=== PATIENT | male | born 1990 | race Caucasian/White ===

== ENCOUNTER 2020-08-20 13:56 | Outpatient (RCR) | payer OTHER, SELFPAY | END 2020-11-10 10:50 | disposition home or self-care (01) | LOC: ANHDMC 13:56 | PROVIDERS: PCP Family Medicine Adolescent Medicine; Visit Provider Family Medicine Adolescent Medicine | DX: R63.5 Abnormal weight gain (principal); Z71.3 Dietary counseling and surveillance | CPT/HCPCS: 97802 ==

== ENCOUNTER 2020-08-24 10:25 | Emergency (ER) | payer OTHER, SELFPAY ==
[2020-08-24 10:38] VITALS: BP 143/80; PULSE 70; RESP 18; TEMP 36.8; O2SAT 100
--- NOTE | 2020-08-24 11:03 | ED.SKABFB ---
HPI - Skin/Abscess/Foreign Bdy General Chief complaint: Skin/Abscess/Foreign Body Stated complaint: pos insect bite/sting Source: patient and RN notes reviewed Limitations: no limitations History of Present Illness HPI narrative: The patient, previously unhealthy in a wheelchair with cerebral palsy, presents with skin eruption. Mother notes approximately ~3-day history of skin eruption on his right forearm. Patient has a least a hand-size area of redness, warmth, edema with a central puncta-which is attributed to insect bites. No fever, induration, abscess, prior/other rashes- he does have some chronic acneiform pimples on his back trunk. Symptoms are mild, worse with scratching Related Data Home Medications Medication Instructions Recorded Confirmed aripiprazole mg 08/24/20 benztropine 08/24/20 divalproex PO 08/24/20 Allergies Allergy/AdvReac Type Severity Reaction Status Date / Time No Known Allergies Allergy Verified 09/29/14 10:04 Review of Systems Review of Systems: Narrative: The patient has been informed that they may have pre-hypertension or Hypertension based on a BP reading in the department. I recommend that the patient call the primary care provider listed on their discharge instructions or a physician of their choice this week to arrange follow up for further evaluation of possible pre-hypertension or Hypertension General/Constitutional: No weight loss,fever Eyes: N0: Redness,discharge Ears/Nose/Throat: No: Epistaxis,ear discharge Respiratory: Denies: Hemoptysis Gastrointestinal: No Vomiting, Bleeding-rectal Skin: Reports lumps, eruption Neurologic: No Focal Weakness,Sz Hematologic: Denies: Petechiae/Purpura Psychiatric: No: Suicida ideationl All Other Systems: Reviewed and Negative [facility] Social History Social History Smoking status: Never smoker Alcohol intake: never Spiritual care concerns: No Exam Narrative: Exam Narrative: General Appearance: In wheelchair, Cooperative Head: Slightly dysmorphic Eye: PERRLA, Conjunctiva clear Ear: External ear normal Nose: Normal nose, Nare clear Mouth/Throat: Normal appearing Neck Exam: Supple Respiratory: Airway patent, No respiratory distress Skin: Warm, Dry; small, well demarcated, erysipeloid macular papular skin eruption of right extensor forearm Neurological: Awake & alert Psychiatric: Normal mood, Normal affect Course Vital Signs Vital signs: Vital Signs Temperature 98.3 F 08/24/20 10:38 Pulse Rate 70 08/24/20 10:38 Respiratory Rate 18 08/24/20 10:38 Blood Pressure 143/80 H 08/24/20 10:38 Pulse Oximetry 100 08/24/20 10:38 Temperature 98.3 F 08/24/20 10:38 Pulse Rate 70 08/24/20 10:38 Respiratory Rate 18 08/24/20 10:38 Blood Pressure 143/80 H 08/24/20 10:38 Pulse Oximetry 100 08/24/20 10:38 Discharge Plan Discharge Clinical Impression: Pruritic condition Cellulitis Qualifiers: Site of cellulitis: extremity Site of cellulitis of extremity: upper extremity Laterality: right Qualified Code(s): L03.113 - Cellulitis of right upper limb Patient Disposition: Home, Self-Care Condition: Stable Instructions: Antibiotic Form, Cellulitis (ED) Additional Instructions: Take clindamycin with food, probiotic or antacid; stop if diarrhea occurs Keep photo log of area; go to hospital if not improved Prescriptions: New clindamycin HCl 300 mg capsule 300 mg PO TID Qty: 21 RF: 0 mupirocin 2 % ointment 1 applic TOPICAL TID Qty: 30 RF: 0 No Action benztropine 0.5 mg tablet RF: 0 divalproex 500 mg tablet,delayed release (DR/EC) PO RF: 0 aripiprazole 2 mg tablet RF: 0 Follow-up/Referrals: Jerry Cain MD [Primary Care Provider] -
[2020-08-24] MEDS: cefTRIAXone 1 GM VIAL 0.5 GM IM (11:20)
== END 2020-08-24 11:43 | disposition home or self-care (01) ==
PROVIDERS: Emergency Provider Emergency Medicine; PCP Family Medicine Adolescent Medicine
DX: L03.113 Cellulitis of right upper limb (principal); L29.9 Pruritus, unspecified; G80.9 Cerebral palsy, unspecified; Z99.3 Dependence on wheelchair
CPT/HCPCS: 96372; 99213; G0463; J0696

== ENCOUNTER 2020-09-21 16:12 | Outpatient (RCR) | payer OTHER, SELFPAY ==
--- NOTE | 2020-09-21 17:43 | PCPTNOTE ---
POWER MOBILITY DEVICE EVALUATION AND RECOMMENDATIONS Attending Provider: Jerry Cain MD Patient:Moe Martini Date of :1990 At this evaluation a power mobility device was recommended with specifications to meet the needs of the patient. Please see power mobility device evaluation for form details of evaluation. No further care plan will be developed. Thank you for referring this patient to [facility]. Please review, sign, date and return this discharge summary SARA. I have been updated about the patient's current status and I agree with discharge from the above service at this time. Referring Physician Date
== END 2020-12-07 08:14 | disposition home or self-care (01) ==
LOC: ANHPT 16:12
PROVIDERS: PCP Family Medicine Adolescent Medicine; Visit Provider Family Medicine Adolescent Medicine
DX: G80.8 Other cerebral palsy (principal)
CPT/HCPCS: 97163

== ENCOUNTER 2020-12-19 11:02 | Emergency (ER) | payer OTHER, SELFPAY ==
[2020-12-19 11:10] VITALS: BP 133/81; PULSE 88; RESP 16; TEMP 36.8; O2SAT 99
--- NOTE | 2020-12-19 11:21 | ED.DENTAL ---
HPI - Dental/Oral General Chief complaint: Dental/Oral Stated complaint: JAW PAIN Time Seen by Provider: 12/19/20 11:10 Source: patient, family and RN notes reviewed Mode of arrival: ambulatory Limitations: no limitations History of Present Illness HPI Narrative: Mother presents patient today complaining of white spots along the right upper gumline that are painful. Patient noticed 2 to 3 days ago. Mother was wanting to know if these were the start of a dental infection or abscess. No [id number] interventions prior to arrival. Patient denies any tooth pain or facial swelling. Related Data Home Medications Medication Instructions Recorded Confirmed aripiprazole mg 08/24/20 benztropine 08/24/20 divalproex PO 08/24/20 Allergies Allergy/AdvReac Type Severity Reaction Status Date / Time No Known Allergies Allergy Verified 09/29/14 10:04 Review of Systems Review of Systems: CONSTITUTIONAL: Denies body aches, fever, chills, or sweats. EYES: Denies visual changes, redness, or discharge. ENT: Denies rhinorrhea, congestion, sore throat, or otalgia.+ White bumps along the right upper gumline CARDIOVASCULAR: Denies chest pain, palpitations, or edema. RESPIRATORY: Denies cough or dyspnea. GASTROINTESTINAL: Denies abdominal pain, nausea, vomiting, or diarrhea. GENITOURINARY: Denies dysuria or hematuria. SKIN: Denies rash, itching, or wounds. MUSCULOSKELETAL: Denies back pain, joint pain, or myalgia. NEUROLOGIC: Denies headache, numbness, tingling, or weakness. PSYCH: Denies depression or anxiety. [facility] Past Medical History Medical History (Updated 12/19/20 @ 11:24 by Valentina Rojo, SALES DEVELOPMENT REPRESENTATIVE, ) Cerebral palsy Social History Social History Smoking status: Never smoker Alcohol intake: never Spiritual care concerns: No Comments At time of signature, I have reviewed and agree with nursing past medical, surgical, social and family history unless otherwise noted. Please see nursing chart for further information. There is no relevant family history pertinent to the presenting complaint Exam Narrative: GENERAL: Well-appearing, well-nourished, and in no acute distress. HEAD: Normocephalic, atraumatic. EYES: EOMI. No redness or drainage. Conjunctivae normal. ENT: Mucous membranes pink and moist. Nares clear. No rhinorrhea. Throat normal. Uvula midline. + Patient has several white ulcerations along the very superior portion of the right upper gumline, where the gums meet the cheek. There is surrounding erythema. NECK: Normal AROM. Supple. No lymphadenopathy. CHEST: No respiratory distress. EXTREMITIES: No edema. SKIN: Warm, dry, no rash. Capillary refill normal. Normal skin turgor. NEURO: No focal deficits. Alert and oriented x3. PSYCH: Normal affect. No signs of depression or anxiety. Course Vital Signs Vital signs: Vital Signs Temperature 98.2 F 12/19/20 11:10 Pulse Rate 88 12/19/20 11:10 Respiratory Rate 16 12/19/20 11:10 Blood Pressure 133/81 12/19/20 11:10 Pulse Oximetry 99 12/19/20 11:10 Temperature 98.2 F 12/19/20 11:10 Pulse Rate 88 12/19/20 11:10 Respiratory Rate 16 12/19/20 11:10 Blood Pressure 133/81 12/19/20 11:10 Pulse Oximetry 99 12/19/20 11:10 Reviewed. Pt has been instructed to follow up with his PCP regarding his elevated blood pressure today. MDM - Dental/Oral Differential Diagnosis Differential diagnosis: Likely gingival abscess, dental caries, toothache, dental abscess and fracture of tooth Critical Care Time Critical Care Time Critical Care Time: No Discharge Plan Discharge Clinical Impression: Gingivitis Patient Disposition: Home, Self-Care Condition: Stable Instructions: Antibiotic Form, Gingivitis (ED), Canker Sores (ED) Additional Instructions: Please give the amoxicillin as prescribed until gone. Give Tylenol or ibuprofen at home for brian
== END 2020-12-19 11:41 | disposition home or self-care (01) ==
PROVIDERS: Emergency Provider Nurse Practitioner; PCP Family Medicine Adolescent Medicine
DX: K05.10 Chronic gingivitis, plaque induced (principal); G80.9 Cerebral palsy, unspecified
CPT/HCPCS: 99213; G0463

== ENCOUNTER 2021-04-19 14:16 | Emergency (ER) | payer OTHER, SELFPAY ==
--- NOTE | 2021-04-19 14:22 | ED.ABDPAIN ---
HPI - Abdominal Pain General Chief Complaint: Abdominal Pain Stated Complaint: R SIDED ABD PAIN Time Seen by Provider: 04/19/21 14:40 Source: patient, family, RN notes reviewed and old records reviewed Mode of arrival: ambulatory Limitations: no limitations History of Present Illness HPI narrative: 31 year old male who presents per wheel chair accompanied by mother to express care with complaints of abdominal pain for the past 2 weeks to mid abdomen region below umbilicus.. Patient has history of cerebral palsy and is weak on his left side and is unable to walk, mother states that he is able to crawl around and he is able to crawl into wheelchair but unable to stand. Patient is incontinent of urine and stool but was able to give us a urine specimen. Patient has had no fever, chills or sweats, mother reports that patient has been drinking more soda than usual just returned from vacation where they went to [employer]. Patient has had no nausea or vomiting but did have some diarrhea stools X2 today. MD elicited complaint: abdominal pain Pertinent past history: other (incontinent) Onset (ago): day(s) (2 weeks) Pain Consistency: colicky Location: other (below umbilicus mid abdomen) Severity: mild Quality: aching Radiation: none Exacerbating factors: nothing Related Data Home Medications Medication Instructions Recorded Confirmed aripiprazole 2 mg tablet 2 mg PO DAILY tablet 03/16/21 04/19/21 benztropine 0.5 mg tablet 0.5 mg PO BID tablet 03/16/21 04/19/21 divalproex 500 mg tablet,delayed 500 mg PO BID tablet 03/16/21 04/19/21 release Allergies Allergy/AdvReac Type Severity Reaction Status Date / Time No Known Allergies Allergy Verified 04/19/21 14:26 Review of Systems Review of Systems: CONSTITUTIONAL: Denies fever, chills, or sweats. EYES: Denies visual changes, redness, or discharge. ENT: Denies rhinorrhea, congestion, sore throat, or otalgia. CARDIOVASCULAR: Denies chest pain, palpitations, or edema. RESPIRATORY: Denies cough or dyspnea. GASTROINTESTINAL: abdominal pain mid lower abdomen, no nausea, vomiting, or diarrhea. GENITOURINARY: patient is incontinent of urine and stools, no pain with urination voiced, SKIN: Denies rash or itching. MUSCULOSKELETAL: Denies back pain, joint pain, or myalgia, has cerebral palsy is unable to stand is weak on left extremities, is in wheelchair NEUROLOGIC: Denies headache, numbness, has weakness left extremities PSYCHIATRIC: Denies anxiety or depression. All systems reviewed & are unremarkable except as noted in HPI and below PMFSH Past Medical History Medical History Cerebral palsy Seizure disorder Urinary incontinence Family History Family History Father Acute myocardial infarction Mother Asthma Grandparent Breast cancer Sibling Cerebrovascular accident Social History Social History Smoking status: Never smoker Tobacco type: cigars Second hand tobacco smoke exposure: No Alcohol intake: never Substance use: never Substance use type: does not use Gender identity (if verbalized by the patient): Male Sexual Orientation (if Verbalized by the Patient): Straight or Heterosexual Spiritual care concerns: No Agree to blood products: Yes Comments At time of signature, agree with nursing past medical, surgical, social and family history. There is no relevant family history pertinent to the presenting complaint Exam Narrative: GENERAL: Well-appearing, well-nourished, and in no acute distress. HEAD: Normocephalic, atraumatic. EYES: PERRLA and EOMI. ENT: Nares clear, no rhinorrhea or epistaxis. Mucous membranes moist. NECK: Supple. no lymphadenopathy CHEST: Clear to auscultation. No respiratory distress. SAO2 100% on room air HEART: Regular rate and rhythm. No murmur heard. Normal periphera
[2021-04-19 14:23] VITALS: BP 131/74; PULSE 92; RESP 16; TEMP 36.8; O2SAT 100
== END 2021-04-19 14:59 | disposition home or self-care (01) ==
PROVIDERS: Emergency Provider Registered Nurse; PCP Family Medicine Adolescent Medicine
DX: N39.0 Urinary tract infection, site not specified (principal); G80.9 Cerebral palsy, unspecified; G40.909 Epilepsy, unspecified, not intractable, without status epilepticus
CPT/HCPCS: 81003; 87086; 99213; G0463

== ENCOUNTER 2021-10-18 14:40 | Emergency (ER) | payer OTHER, SELFPAY ==
--- NOTE | 2021-10-18 15:01 | ED.URI ---
HPI - URI/Sore Throat General Chief Complaint: Upper Respiratory Infection Stated Complaint: sore throat Time Seen by Provider: 10/18/21 15:01 History of Present Illness HPI Narrative: 31 y/o male with history of cerebral palsy presented with mother for c/o sore throat since yesterday. Endorses cough today. Denies any other symptoms. Denies sick contacts. Not taking anything for symptoms. Related Data Home Medications Medication Instructions Recorded Confirmed aripiprazole 2 mg tablet 2 mg PO DAILY 03/16/21 10/18/21 benztropine 0.5 mg tablet 0.5 mg PO BID 03/16/21 10/18/21 divalproex 500 mg tablet,delayed 500 mg PO BID 03/16/21 10/18/21 release Allergies Allergy/AdvReac Type Severity Reaction Status Date / Time No Known Allergies Allergy Verified 10/18/21 14:58 Review of Systems Review of Systems: CONSTITUTIONAL: Denies body aches, fever, chills, or sweats. EYES: Denies visual changes, redness, or discharge. ENT: Denies rhinorrhea, congestion, or otalgia. CARDIOVASCULAR: Denies chest pain, palpitations, or edema. RESPIRATORY: Denies dyspnea. GASTROINTESTINAL: Denies abdominal pain, nausea, vomiting, or diarrhea. SKIN: Denies rash, itching, or wounds. MUSCULOSKELETAL: Denies back pain, joint pain, or myalgia. NEUROLOGIC: Denies headache PMFSH Past Medical History Medical History Cerebral palsy Seizure disorder Urinary incontinence Family History Family History Father Acute myocardial infarction Mother Asthma Grandparent Breast cancer Sibling Cerebrovascular accident Social History Social History Smoking status: Never smoker Tobacco type: cigars Second hand tobacco smoke exposure: No Alcohol intake: never Substance use: never Substance use type: does not use Gender identity (if verbalized by the patient): Male Sexual Orientation (if Verbalized by the Patient): Straight or Heterosexual Spiritual care concerns: No Agree to blood products: Yes Exam Narrative: GENERAL: well-appearing, no acute distress. EYES: conjunctivae clear ENT: Mucous membranes moist. TMs pearly van with normal light reflex bilaterally; no tragal tenderness. Oropharynx erythematous without lesions. Tonsils enlarged and without exudate. No drooling, no hoarseness, no trismus, uvula midline. No tripod positioning, hot potato voice, or soft palate swelling. NECK: Supple. No lymphadenopathy CHEST: Clear to auscultation, breath sounds equal. HEART: Regular rate and rhythm. No murmur heard. SKIN: Warm, dry, no rash. NEURO: Alert and oriented x3. Wheelchair. Course Course Emergency Course: Patient is aware of diagnosis, understands and agrees to treatment plan. Anticipatory guidance given. Patient agrees to follow-up as directed and is aware of reasons to seek care at the emergency department. Portions of this record may have been created with voice recognition software Level of Care: Express Care Visit Vital Signs Vital signs: Vital Signs Temperature 100.5 F H 10/18/21 15:21 Pulse Rate 106 H 10/18/21 15:21 Respiratory Rate 16 10/18/21 15:21 Blood Pressure 114/74 10/18/21 15:21 Pulse Oximetry 98 10/18/21 15:21 Temperature 100.5 F H 10/18/21 15:21 Pulse Rate 106 H 10/18/21 15:21 Respiratory Rate 16 10/18/21 15:21 Blood Pressure 114/74 10/18/21 15:21 Pulse Oximetry 98 10/18/21 15:21 MDM - URI/Sore Throat MDM Narrative Medical decision making narrative: Neg strep and covid result reviewed with pt and mother. Advised supportive treatments and s/s to go to the ER. Aware culture will be sent. Patient is appropriate for outpatient treatment and follow-up. Differential Diagnosis Differential diagnosis: Likely upper respiratory infection, viral infection and pharyngitis Lab Data Labs:
[2021-10-18 15:21] VITALS: BP 114/74; PULSE 106; RESP 16; TEMP 38.1; O2SAT 98
== END 2021-10-18 15:40 | disposition home or self-care (01) ==
PROVIDERS: Emergency Provider Nurse Practitioner Family; PCP Family Medicine Adolescent Medicine
DX: J02.9 Acute pharyngitis, unspecified (principal); Z20.822 Contact with and (suspected) exposure to COVID-19; G80.9 Cerebral palsy, unspecified; G40.909 Epilepsy, unspecified, not intractable, without status epilepticus
CPT/HCPCS: 87081; 87426; 87880; 99213; C9803; G0463

== ENCOUNTER 2022-03-16 20:46 | Inpatient (IN) | payer OTHER, SELFPAY ==
--- NOTE | ~2022-03-16 | CT_ITS ---
EXAMINATION: CT abdomen pelvis w con DATE: 03/16/2022 22:35 INDICATION: LLQ abd pain, nausea, constipation TECHNIQUE: Computed tomography (CT) of the abdomen and pelvis was performed with 100 mL Omnipaque-350 intravenous contrast. Automated exposure control and iterative reconstruction technique were employe d. The dose-length product was 583.44 mGy-cm. COMPARISON: 08/19/2014. FINDINGS: Lower thorax: Mild dependent atelectasis. Bilateral gynecomastia. Liver: Normal. Biliary/Gallbladder: Gallbladder is collapsed. No bile duct dilation. Pancreas: No mass or duct dilation. Spleen: Normal. Adrenals:No mass. Kidneys: Simple left upper pole cyst. Multiple bilateral subcentimeter hypodensities that are too sma ll to characterize but also most likely represent cysts. 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 No obstructive calcification or hydronephrosis. GI tract: Mild distal esophageal and gastric wall edema. Marked rectal and distal sigmoid dilation by formed stool, up to 10.6 cm, with wall thickening and surrounding inflammatory change. No small ana l dilation. Normal appendix. Mesentery/Peritoneum: No ascites, mass, or free air. Retroperitoneum: No mass. Pelvis: The bladder is partially filled and displaced by the dilated rectum/sigmoid. Soft Tissues: Soft tissues and body wall unremarkable. Bones: No acute osseous finding. IMPRESSION: Marked fecal impaction with associated findings concerning for stercoral colitis. The volume of impac alex fecal material is slightly less than in the prior study but the degree of surrounding inflammator y change has increased. Reviewed, dictated and finalized at location K. ON MIXER IMPRESSION: Marked fecal impaction with associated findings concerning for stercoral coliti s. The volume of impacted fecal material is slightly less than in the prior felicia dy but the degree of surrounding inflammatory change has increased.
--- NOTE | ~2022-03-16 | US_ITS ---
EXAMINATION: US venous doppler UE RT DATE: 03/18/2022 10:52 INDICATION: Infiltration of the IV access site at the right upper limb with subsequent pain and tissu e dysfunction TECHNIQUE: Grayscale images without and with compression and Doppler images of the right upper extrem ity veins were obtained at the below the level of the antecubital fossa. Patient refused removal of h is shirt precluding assessment of the veins in the more proximal upper arm COMPARISON: None. FINDINGS: There is focal subcutaneous edema at the right antecubital fossa. The right cephalic vein, radial vei n, and ulnar vein are patent. IMPRESSION: 1. Focal subcutaneous edema at the right antecubital fossa with patent right cephalic, radial and uln ar veins which are without evident venous thrombosis. 2. The veins in the right upper arm were unable to be evaluated as patient refused removal of his mahnaz rt. Reviewed, dictated and finalized at location B. TRICAL CONTACTS ADJUSTER IMPRESSION: 1. Focal subcutaneous edema at the right antecubital fossa with patent right ce phalic, radial and ulnar veins which are without evident venous thrombosis. 2. The veins in the right upper arm were unable to be evaluated as patient refu sed removal of his shirt.
--- NOTE | ~2022-03-16 | US_ITS ---
EXAMINATION: US venous doppler UE RT DATE: 03/18/2022 18:40 INDICATION: Right upper extremity swelling TECHNIQUE: Grayscale ultrasound images without and with compression and Doppler ultrasound images of the right upper extremity veins were obtained. COMPARISON: 1037 hours. FINDINGS: The right internal jugular vein, subclavian vein, axillary vein, brachial veins, basilic vein, cephal ic vein, radial vein, and ulnar vein are patent. IMPRESSION: 1. No evidence of deep venous thrombosis. Reviewed, dictated and finalized at location F. FICIAL PLASTIC EYE MAKER
--- NOTE | ~2022-03-16 | XR_ITS ---
Supine and upright views of the abdomen Clinical history: Fecal impaction COMPARISON: 06/04/2013 Findings: Bowel gas pattern is nonspecific. Large amount of stool noted at the rectum. No evidence fo r obstruction or free air. No abnormal mass lesion or calcification is seen. Osseous structures are i ntact. Impression: Large amount of the stool at the rectum, consistent with history of fecal impaction. Reviewed, dictated and finalized at location . OPERATOR Impression: Large amount of the stool at the rectum, consistent with history of fecal impac tion.
--- NOTE | ~2022-03-16 | XR_ITS ---
XR abdomen/kub 1V 03/19/2022 13:01 INDICATION: Abdominal distention TECHNIQUE: KUB COMPARISON: None FINDINGS: Bowel gas pattern is normal. Moderate gas is present throughout the small bowel and colon. There is significant fecal loading of the rectum. There is no evidence of free air, mass, organomegal y, ascites or obstruction. No abnormal calculi are seen. The bones appear intact. IMPRESSION: 1: Significant fecal loading of the rectum. Reviewed, dictated and finalized at location A. [facility]
[2022-03-16 20:51] VITALS: BP 161/91; PULSE 117; RESP 18; TEMP 37; O2SAT 96
[2022-03-16 21:15] VITALS: BP 142/93; PULSE 102; O2SAT 98
--- NOTE | 2022-03-16 21:51 | ED.ABDPAIN ---
HPI - Abdominal Pain General Chief Complaint: Abdominal Pain Stated Complaint: abdominal pain Time Seen by Provider: 03/16/22 21:34 History of Present Illness HPI narrative: 32-year-old male with a history of cerebral palsy here for evaluation of abdominal pain for the past day. History obtained largely from parents given patient's baseline mental status. Reports intermittent issues with constipation for his whole life; has had a colonoscopy that has been reassuring. Used to take miralax daily but stopped 2 weeks ago due to having normal BMs. Parents expressed concern over patient complaining of left-sided abdominal pain today and some nausea. He has had leakage of stool but has not had a solid BM. Related Data Home Medications Medication Instructions Recorded Confirmed aripiprazole 2 mg tablet 2 mg PO DAILY 03/16/21 10/18/21 benztropine 0.5 mg tablet 0.5 mg PO BID 03/16/21 10/18/21 divalproex 500 mg tablet,delayed 500 mg PO BID 03/16/21 10/18/21 release Allergies Allergy/AdvReac Type Severity Reaction Status Date / Time No Known Allergies Allergy Verified 03/16/22 21:03 Review of Systems Review of Systems: Gen.: Denies fevers or chills Eyes: Denies eye pain or visual change ENT: Denies congestion Respiratory: Denies shortness of breath or cough CV: Denies chest pain or palpitations GI: Reports abdominal pain and constipation denies burning, urgency, frequency or hematuria Musculoskeletal: Denies back pain or muscle pain Neuro: Denies numbness, tingling, weakness or focal weakness Skin: Denies rash Except as documented, all other systems reviewed and negative [facility] Past Medical History Medical History Cerebral palsy Seizure disorder Urinary incontinence Family History Family History Father Acute myocardial infarction Mother Asthma Grandparent Breast cancer Sibling Cerebrovascular accident Social History Social History Smoking status: Never smoker Tobacco type: cigars Second hand tobacco smoke exposure: No Alcohol intake: never Substance use: never Substance use type: does not use Living arrangements: with family Occupation/Education: student Gender identity (if verbalized by the patient): Male Sexual Orientation (if Verbalized by the Patient): Straight or Heterosexual Spiritual care concerns: No Agree to blood products: Yes Exam Narrative: APPEARANCE: Alert, oriented, pleasant Head: Normocephalic and atraumatic. EYES: PERRLA/EOMI, conjunctivae clear NOSE: No nasal drainage EARS: External ear normal in appearance THROAT: Oropharynx is clear. Mucous membranes are moist. NECK: Supple. No adenopathy, no masses. RESPIRATORY: Airway patent, respirations nonlabored. Clear to auscultation bilaterally, no rales, rhonchi, wheezing. CARDIOVASCULAR: Regular rate and rhythm without murmurs, rubs, or gallops. : Depends in place. Patient not tolerating rectal exam; unable to disimpact ABDOMINAL: Tender to palpation in the left lower quadrant with no rebound tenderness or guarding. Abdomen is soft and has normal active bowel sounds. MUSCULOSKELETAL: Extremities are warm and well-perfused. Moves all extremities well. No edema. NEURO: Normal speech. No focal neurologic deficits. SKIN: Skin is warm and dry. No rashes. PSYCHIATRIC: Normal affect/mood.. Course Vital Signs Vital signs: Vital Signs Temperature 98.6 F 03/16/22 20:51 Pulse Rate 117 H 03/16/22 20:51 Respiratory Rate 18 03/16/22 20:51 Blood Pressure 161/91 H 03/16/22 20:51 Pulse Oximetry 96 03/16/22 20:51 Temperature 98.6 F 03/16/22 20:51 Pulse Rate 87 03/17/22 02:14 Respiratory Rate 14 03/17/22 02:14 Blood Pressure 103/85 03/17/22 02:14 Pulse Oximetry 99 03/17/22 02:14 MDM - Abdominal Pain
[2022-03-16 22:09] LABS: Basophils Percent Auto 0.3 % (0.2-1.2); Eosinophils Absolute Auto 0.3 K/mm3 (0-0.3); Eosinophils Percent Auto 2.9 % (0-4.4); Hematocrit 43.4 % (42.0-52.0); Hemoglobin 15.5 g/dL (14.0-18.0); Immature Granulocyte Absolute 0.04 K/mm3 (0.00-0.031); Immature Granulocyte Percent A 0.4 % (0-0.5); Lymphocytes Percent Auto 30.2 % (18.3-44.2); Mean Corpuscular HGB Conc 35.7 g/dl (32-36); Mean Corpuscular Hemoglobin 31.1 pg (26-34); Mean Corpuscular Volume 87.1 fl (80-100); Mean Platelet Volume 9.5 fl (7.4-10.4); Monocytes Percent Auto 11.2 % (2.6-8.5); Neutrophils Absolute Auto 4.9 K/mm3 (1.3-6.7); Platelet Count Result 217 k/mm3 (150-375); Red Blood Count 4.98 M/mm3 (4.6-6.20); Red Cell Distribution Width 12.8 % (11.5-14.5); White Blood Count 8.9 K/mm3 (4.5-10.0)
[2022-03-16 22:20] LABS: Alanine Aminotransferase 32 U/L (6-50); Albumin Level 3.9 g/dL (3.5-5.1); Alkaline Phosphatase 64 U/L (38-126); Anion Gap 8 mmol/L (8-16); Aspartate Amino Transferase 23 U/L (17-59); Bilirubin,Total 0.6 mg/dL (0.2-1.3); Blood Urea Nitrogen 8 mg/dL (9-20); Calcium 9.2 mg/dL (8.4-10.2); Carbon Dioxide 27 mmol/L (22-30); Chloride 103 mmol/L (98-107); Estimated Glomerular Filt Rate > 60; Glucose 97 mg/dL (65-110); Lipase 55 U/L (23-300); Potassium 3.9 mmol/L (3.4-5.0); Sodium 138 mmol/L (137-145)
[2022-03-16 22:39] VITALS: BP 138/87; PULSE 87; RESP 16; O2SAT 97
[2022-03-16] MEDS: MAGNESIUM HYDROXIDE SUSP 30 ML UDC PO (23:24)
[2022-03-17] VITALS (7 sets, daily range): BP systolic 103–135; BP diastolic 69–93; PULSE 69–87; RESP 14–18; TEMP 36.3–36.9; O2SAT 96–99; BMI 27.7
[2022-03-17] MEDS: polyethylene glycoL 3350 17 GM POWD.PACK PO (01:01)
--- NOTE | 2022-03-17 01:30 | PM.IMHP ---
H&P: HPI History of Present Illness Date/Time: 03/17/22 01:30 Chief Complaint: Abdominal pain Narrative: 32-year-old male with a history of cerebral palsy and a seizure, brought to ED because of abdominal pain. Patient started to have lower abdominal pain in past few more days. Patient has a history of constipation and fecal impaction. Patient used to take miralax daily but stopped 2 weeks ago due to having normal BMs.? Patient has a worsening left-sided abdominal pain today and some nausea.? Therefore patient is brought to ED for evaluation. In the ED patient is found fecal impaction in the rectum and the sigmoid colon. Patient has received MiraLax and milk of magnesium in the ED, but patient does not no bowel movement. ER physician consult GI, we admit patient for further evaluation and management Review of Systems Review of Systems: ROS unobtainable: Yes unobtainable due to mental status PMFSH Past Medical History Medical History Cerebral palsy Seizure disorder Urinary incontinence Family History Family History Father Acute myocardial infarction Mother Asthma Grandparent Breast cancer Sibling Cerebrovascular accident Social History Social History Smoking status: Never smoker Tobacco type: cigars Second hand tobacco smoke exposure: No Alcohol intake: never Substance use: never Substance use type: does not use Living arrangements: with family Occupation/Education: student Gender identity (if verbalized by the patient): Male Sexual Orientation (if Verbalized by the Patient): Straight or Heterosexual Spiritual care concerns: No Agree to blood products: Yes Meds Home Medications and Allergies Home Medications Medication Instructions Recorded Confirmed Type aripiprazole 2 mg tablet 2 mg PO DAILY 03/16/21 10/18/21 History benztropine 0.5 mg tablet 0.5 mg PO BID 03/16/21 10/18/21 History divalproex 500 mg tablet,delayed 500 mg PO BID 03/16/21 10/18/21 History release albuterol sulfate 90 mcg/actuation 2 puff inhalation Q4H PRN 01/28/22 Rx aerosol inhaler shortness of breath or wheezing #8.5 grams Allergies Allergy/AdvReac Type Severity Reaction Status Date / Time No Known Allergies Allergy Verified 03/16/22 21:03 Vital Signs Vital Signs - 24 hr 03/16/22 20:51 03/16/22 21:15 03/16/22 22:39 Temperature 98.6 F Pulse Rate 117 H 102 H 87 Respiratory Rate 18 16 Blood Pressure 161/91 H 142/93 H 138/87 Pulse Oximetry 96 98 97 03/17/22 00:17 Temperature Pulse Rate 82 Respiratory Rate Blood Pressure 135/87 Pulse Oximetry 98 Exam Narrative: GENERAL: Pleasant, in no acute distress. Well-nourished. - EYES: EOMI. Anicteric. - HENT: Moist mucous membranes. - LUNGS: Clear to auscultation bilaterally, no wheezing, rhonchi, or rales. - CARDIOVASCULAR: Regular rate and rhythm. No murmur. No JVD. - ABDOMEN: Soft, left lower quadrant tender and distended. No palpable masses. - EXTREMITIES: No edema. Peripheral pulses 2+. Non-tender. - NEUROLOGIC: No focal neurological deficits. CN II-XII grossly intact. - PSYCHIATRIC: Awake, Alert and note oriented x 3. Appropriate mood and affect. - SKIN: No rashes or lesions. Warm. - LYMPH: No cervical lymphadenopathy. H&P: Results Labs Labs: Short CBC 03/16/22 Range/Units 22:02 WBC 8.9 (4.5-10.0) K/mm3 Hgb 15.5 (14.0-18.0) g/dL Hct 43.4 (42.0-52.0) % Plt Count 217 (150-375) k/mm3 BMP 03/16/22 22:02 Sodium 138 Potassium 3.9 Chloride 103 Carbon Dioxide 27 BUN 8 L Creatinine 0.60 L Glucose 97 Calcium 9.2 Liver Function 03/16/22 Range/Units 22:02 Total Bilirubin 0.6 (0.2-1.3) mg/dL AST 23 (17-59) U/L ALT 32 (6-50) U/L Alkaline Phosphatase 64 (38-126) U/L Albumin 3.9 (3
[2022-03-17 01:33] LABS: Influenza A QL RT-PCR Negative (Negative); Influenza B QL RT-PCR Negative (Negative); RSV RNA, RT-PCR Negative (Negative); SARS-CoV-2 RNA PCR Negative
[2022-03-17] MEDS: PEG (High)/E-LYTE SOLN 4,000 ML BTL 3000 ML PO (01:45)
[2022-03-17 01:50] LABS: Lactic Acid Reflex 1.2 mmol/L (0.7-2.0)
--- NOTE | 2022-03-17 02:04 | PC.NURSE ---
Spoke with MD Jerez, okay to not give full amount of go-lytely. only give until patient is having BM. will continue to monitor.
[2022-03-17] MEDS: DEXTROSE 5%/0.9% SOD CHL 1,000 ML 100 ML IV CONT ×3 (04:01→23:33)
--- NOTE | 2022-03-17 05:57 | PC.NURSE ---
Patient arrived on 3 Med-Surg at 02:35
--- NOTE | 2022-03-17 07:28 | WPDGICN ---
Assessment and Plan Assessment and plan (1) Fecal impaction of colon: Code(s): K56.41 - Fecal impaction Status: Acute Assessment and Plan: this has happened in the past. I saw he has been her previously with impaction as far back as 2014. Hopefully the oral prep will help mobilize it. He may otherwise require removal of impaction under anesthesia. I told that after discharge, that it is very important that he stay on his MiraLax. Apparently he stopped taking it about 2 weeks ago for some reason. (2) Cerebral palsy: Code(s): G80.9 - Cerebral palsy, unspecified Status: Chronic (3) Seizure disorder: Code(s): G40.909 - Epilepsy, unspecified, not intractable, without status epilepticus Status: Chronic Assessment and Plan: No history of recent seizures and he is on medication divalproex. (4) Left lower quadrant abdominal pain: Code(s): R10.32 - Left lower quadrant pain Status: Acute Assessment and Plan: almost certainly this is due to the impaction. He did have a colonoscopy at another institution of couple of years ago that was said to be unremarkable. GI Consult Note Consult date/time: 03/17/22 07:28 HPI: Moe Martini is a 32 year old male who suffers from seizure disorder and cerebral palsy he suffers from chronic constipation. He presented to the emergency room last night with moderate pain in the left lower quadrant and rectum. He was found on CT scan have a large fecal impaction extending up the sigmoid colon. He apparently takes MiraLax at home but decided to stop taking it about 2 weeks ago. He tells me that this has happened in the past. He has begun drinking GoLYTELY prep in order to try to mobilize that impaction. He was sipping it job as I entered the room. I encouraged him to try and drink it a little more quickly so he will have more efficient results Review of Systems Review of Systems: All systems reviewed & are unremarkable except as noted in HPI and below PMFSH Past Medical History Medical History Cerebral palsy Seizure disorder Urinary incontinence Family History Family History Father Acute myocardial infarction Mother Asthma Grandparent Breast cancer Sibling Cerebrovascular accident Grandparent Atrial fibrillation Social History Social History Smoking status: Never smoker Tobacco type: cigars Second hand tobacco smoke exposure: No Alcohol intake: never Substance use: never Substance use type: does not use Lack of Transportation: No Lack of Food: Never True Current Housing: I Have Housing Concerned About Future Housing: No Difficulty Paying Gas/Electric Bills: No Difficulty Paying for Meds: No Currently Unemployed: No Education: High School Diploma/GED Difficulty w/ Childcare or Family Care: No Living arrangements: with family Occupation/Education: student Gender identity (if verbalized by the patient): Male Sexual Orientation (if Verbalized by the Patient): Straight or Heterosexual Spiritual care concerns: No Agree to blood products: Yes Meds Home Medications and Allergies Home Medications Medication Instructions Recorded Confirmed Type aripiprazole 2 mg tablet 2 mg PO DAILY 03/16/21 03/17/22 History benztropine 0.5 mg tablet 0.5 mg PO BID 03/16/21 03/17/22 History divalproex 500 mg tablet,delayed 500 mg PO BID 03/16/21 03/17/22 History release albuterol sulfate 90 mcg/actuation 2 puff inhalation Q4H PRN 01/28/22 03/17/22 Rx aerosol inhaler shortness of breath or wheezing #8.5 grams Allergies Allergy/AdvReac Type Severity Reaction Status Date / Time No Known Allergies Allergy Verified 03/17/22 02:39 Vital Signs Vital Signs - 24 hr 03/16/22 20:51 03/16/22 21:15 03/16/22
[2022-03-17 09:40] LABS: Anion Gap 4 mmol/L (8-16); Blood Urea Nitrogen 6 mg/dL (9-20); Calcium 9.3 mg/dL (8.4-10.2); Carbon Dioxide 31 mmol/L (22-30); Chloride 100 mmol/L (98-107); Estimated CRCL calculation 150 ml/min; Estimated Glomerular Filt Rate > 60; Glucose 91 mg/dL (65-110); Sodium 135 mmol/L (137-145)
[2022-03-17] MEDS: ENOXAPARIN 40 MG/0.4 ML SYRINGE SUB-Q (09:45)
--- NOTE | 2022-03-17 14:38 | PM.IMPN ---
Progress Note: A&P Assessment and Plan (1) Fecal impaction of colon: Code(s): K56.41 - Fecal impaction Status: Acute Assessment and Plan: Patient presented with chief complaint of abdomen pain CT shows fecal impaction in the sigmoid colon and the rectum Start GoLYTELY p.o.8 oz fluid every 10 minutes until large bowel movements. GI consulted Keep patient NPO, start normal saline IV until fecal impaction resolves If not resolved will knee removal impaction and anaesthesia Stay on his MiraLax regularly (2) Fecal impaction in rectum: Code(s): K56.41 - Fecal impaction Status: Acute (3) Cerebral palsy: Code(s): G80.9 - Cerebral palsy, unspecified Status: Chronic (4) Seizure disorder: Code(s): G40.909 - Epilepsy, unspecified, not intractable, without status epilepticus Status: Chronic Assessment and Plan: Resume Depakote 500 mg b.i.d. p.o. Subjective Date/time seen: 03/17/22 14:39 Interval history: He reports no abdominal pain. Nausea vomiting. Points to the lower abdominal area where was sore. Family at bedside. Trying GoLYTELY today Review of Systems Review of Systems: All systems reviewed & are unremarkable except as noted in HPI and below Exam Narrative: GENERAL: Pleasant, in no acute distress. Well-nourished. - EYES: EOMI. Anicteric. - HENT: Moist mucous membranes. - LUNGS: Clear to auscultation bilaterally, no wheezing, rhonchi, or rales. - CARDIOVASCULAR: Regular rate and rhythm. No murmur. No JVD. - ABDOMEN: Soft, left lower quadrant tender and mildly distended. No palpable masses. - EXTREMITIES: No edema. Peripheral pulses 2+. Non-tender. - NEUROLOGIC: No focal neurological deficits. CN II-XII grossly intact. - PSYCHIATRIC: Awake, Alert and note oriented x 3. Appropriate mood and affect. - SKIN: No rashes or lesions. Warm. - LYMPH: No cervical lymphadenopathy. Objective Data Vital Signs Vital Signs: Vital Signs - 24 hr 03/16/22 20:51 03/16/22 21:15 03/16/22 22:39 Temperature 98.6 F Pulse Rate 117 H 102 H 87 Respiratory Rate 18 16 Blood Pressure 161/91 H 142/93 H 138/87 Pulse Oximetry 96 98 97 Oxygen Delivery 03/17/22 00:17 03/17/22 02:14 03/17/22 03:00 Temperature 97.6 F Pulse Rate 82 87 82 Respiratory Rate 14 18 Blood Pressure 135/87 103/85 124/74 Pulse Oximetry 98 99 98 Oxygen Delivery 03/17/22 05:58 03/17/22 06:00 03/17/22 13:27 Temperature 97.3 F L 97.7 F Pulse Rate 69 85 Respiratory Rate 18 18 Blood Pressure 116/69 126/79 Pulse Oximetry 97 99 Oxygen Delivery Room Air Intake/Output Intake/Output: Intake & Output 03/14/22 03/15/22 03/16/22 03/17/22 23:59 23:59 23:59 23:59 Intake Total 2200 Output Total 1700 Balance 500 Meds/Results Medications: Active Medications Generic Name Dose Route Start Last Admin Trade Name Freq PRN Reason Stop Dose Admin Albuterol 2 puff 03/17/22 09:17 Albuterol Sulfate (*Sp) Aerosol 1 Puff INHALATION Q4H PRN shortness of breath or wheezing Aripiprazole 2 mg 03/17/22 09:20 03/17/22 09:46 Aripiprazole 2 Mg Tablet PO Not Given DAILY STEW Benztropine Mesylate 0.5 mg 03/17/22 09:00 03/17/22 09:46 Benztropine Mesylate 0.5 Mg Tablet PO Not Given BID STEW Divalproex Sodium 500 mg 03/17/22 09:00 03/17/22 09:[address] 250 Mg Tabec PO Not Given BID STEW Enoxaparin Sodium 40 mg 03/17/22 09:00 03/17/22 09:45 Enoxaparin 40 Mg/0.4 Ml Syringe SUB-Q 40 mg DAILY STEW Administration Dextrose/Sodium Chloride 1,000 mls @ 100 mls/hr 03/17/22 01:50 03/17/22 12:30 Dextrose 5% Sodium Chloride 0.9% IV CONT 100 mls/hr .Q10H STEW Administration Magnesium Hydroxide 30 ml 03/17/22 01:46 Magnesium Hydroxide Susp 30 Ml Udc PO DAILY PRN Constipation Radiology Results: ITS Impressions Abdomen/Pelvis CT 03/16/22 22:46 IMPRESSION: Marked fecal impaction w
[2022-03-17] MEDS: DIVALPROEX SODIUM DR 250 MG TABEC 500 MG PO (18:04)
[2022-03-17] MEDS: BENZTROPINE MESYLATE 0.5 MG TABLET PO (18:05)
[2022-03-18] MEDS: DIVALPROEX SODIUM DR 250 MG TABEC 500 MG PO ×2 (04:50→17:24)
[2022-03-18] MEDS: BENZTROPINE MESYLATE 0.5 MG TABLET PO ×2 (04:50→17:24)
[2022-03-18] MEDS: ARIPiprazole 2 MG TABLET PO (04:51)
[2022-03-18 06:00] VITALS: BP 125/83; PULSE 78; RESP 16; TEMP 36.2; O2SAT 99
--- NOTE | 2022-03-18 06:55 | WPDGIPROGNO ---
Progress Note: A&P Assessment and Plan (1) Fecal impaction of colon: Code(s): K56.41 - Fecal impaction Status: Acute Assessment and Plan: Patient presented with chief complaint of abdomen pain CT shows fecal impaction in the sigmoid colon and the rectum Start GoLYTELY p.o.8 oz fluid every 10 minutes until large bowel movements. GI consulted Keep patient NPO, start normal saline IV until fecal impaction resolves If not resolved will knee removal impaction and anaesthesia Stay on his MiraLax regularly (2) Fecal impaction in rectum: Code(s): K56.41 - Fecal impaction Status: Acute Assessment and Plan: 03/18/2022 it appears that the laxatives have not cleared his impaction, as he is only passing liquid stools I he was on admission. We will obtain a KUB and I told that most likely will need to do a disimpaction but will give him sedation. (3) Cerebral palsy: Code(s): G80.9 - Cerebral palsy, unspecified Status: Chronic (4) Seizure disorder: Code(s): G40.909 - Epilepsy, unspecified, not intractable, without status epilepticus Status: Chronic Assessment and Plan: Resume Depakote 500 mg b.i.d. p.o. Subjective Date/time seen: 03/18/22 06:55 He states that he has been having bowel movements but nursing staff confirms that all of his bowel movements have been liquid. He still feels full. I told that he probably still has an impaction that will need to be removed. Also, he has had 2 IV sites infiltrated with results that he developed blisters he has Significant swelling involving most of his right upper extremity from the elbow down, with blisters as well. KUB has been ordered and does still show impaction in the rectum. Exam Const: General: alert Orientation/consciousness: patient oriented x3 Resp: Auscultation: clear to auscultation bilaterally Cardio: Rhythm: regular rhythm GI: Inspection: normal to inspection GI Palp: Yes Soft to palpation, Yes Tenderness to palpation present (GI) ( left lower quadrant), No Guarding due to palpation present (GI) and Yes No hepatosplenomegaly present Auscultation: normal bowel sounds Neuro: General: patient oriented x3 Objective Data Vital Signs Vital Signs: Vital Signs - 24 hr 03/17/22 13:27 03/17/22 16:28 03/17/22 22:00 Temperature 36.5 C 36.9 C 36.5 C Pulse Rate 85 76 75 Respiratory Rate 18 18 16 Blood Pressure 126/79 111/69 129/93 H Pulse Oximetry 99 98 96 Oxygen Delivery 03/17/22 20:00 Temperature Pulse Rate Respiratory Rate Blood Pressure Pulse Oximetry Oxygen Delivery Room Air Intake/Output Intake/Output: Intake & Output 03/15/22 03/16/22 03/17/22 03/18/22 23:59 23:59 23:59 23:59 Intake Total 3618 250 Output Total 2300 Balance 1318 250 Meds/Results Medications: Active Medications Generic Name Dose Route Start Last Admin Trade Name Freq PRN Reason Stop Dose Admin Albuterol 2 puff 03/17/22 09:17 Albuterol Sulfate (*Sp) Aerosol 1 Puff INHALATION Q4H PRN shortness of breath or wheezing Aripiprazole 2 mg 03/18/22 05:00 03/18/22 04:51 Aripiprazole 2 Mg Tablet PO 2 mg DAILY@0500 STEW Administration Benztropine Mesylate 0.5 mg 03/18/22 05:00 03/18/22 04:50 Benztropine Mesylate 0.5 Mg Tablet PO 0.5 mg 0500,1700 STEW Administration Divalproex Sodium 500 mg 03/18/22 05:00 03/18/22 04:[address] 250 Mg Tabec PO 500 mg 0500,1700 STEW Administration Enoxaparin Sodium 40 mg 03/17/22 09:00 03/17/22 09:45 Enoxaparin 40 Mg/0.4 Ml Syringe SUB-Q 40 mg DAILY STEW Administration Dextrose/Sodium Chloride 1,000 mls @ 100 mls/hr 03/17/22 01:50 03/17/22 23:33 Dextrose 5% Sodium Chloride 0.9% IV CONT 100 mls/hr .Q10H STEW Administration Magnesium Hydroxide 30 ml 03/17/22 01:46 Magnesium Hydroxide Susp 30 Ml Udc PO DAILY PRN Constipation Radiology Results: ITS Impressions
[2022-03-18 08:43] LABS: Basophils Percent Auto 0.4 % (0.2-1.2); Eosinophils Absolute Auto 0.2 K/mm3 (0-0.3); Eosinophils Percent Auto 2.8 % (0-4.4); Hematocrit 47.3 % (42.0-52.0); Immature Granulocyte Absolute 0.04 K/mm3 (0.00-0.031); Immature Granulocyte Percent A 0.5 % (0-0.5); Lymphocytes Absolute Auto 2.19 K/mm3 (0.9-3.2); Lymphocytes Percent Auto 26.3 % (18.3-44.2); Mean Corpuscular HGB Conc 33.8 g/dl (32-36); Mean Corpuscular Hemoglobin 30.2 pg (26-34); Mean Corpuscular Volume 89.2 fl (80-100); Mean Platelet Volume 9.6 fl (7.4-10.4); Monocytes Percent Auto 11.5 % (2.6-8.5); Neutrophils Absolute Auto 4.9 K/mm3 (1.3-6.7); Neutrophils Percent Auto 58.5 % (45.5-73.1); Platelet Count Result 219 k/mm3 (150-375); White Blood Count 8.3 K/mm3 (4.5-10.0)
[2022-03-18 08:51] LABS: Alanine Aminotransferase 31 U/L (6-50); Albumin Level 3.8 g/dL (3.5-5.1); Alkaline Phosphatase 74 U/L (38-126); Anion Gap 6 mmol/L (8-16); Aspartate Amino Transferase 22 U/L (17-59); Bilirubin,Total 0.8 mg/dL (0.2-1.3); Blood Urea Nitrogen 7 mg/dL (9-20); Calcium 8.5 mg/dL (8.4-10.2); Carbon Dioxide 30 mmol/L (22-30); Chloride 105 mmol/L (98-107); Estimated CRCL calculation 131 ml/min; Estimated Glomerular Filt Rate > 60; Glucose 90 mg/dL (65-110); Magnesium 2.1 mg/dL (1.6-2.3); Potassium 4.1 mmol/L (3.4-5.0); Sodium 141 mmol/L (137-145)
--- NOTE | 2022-03-18 09:56 | PC.NURSE ---
Pt refuses to allow nurses and aides to perform tasks. Pt's mother and sister insist on doing all care including repositioning pt in bed, bathing, toileting, etc. and considering pt's refusals to staff, it was decided to allow them to do so. Pt's mother and sister demanded to have an ultra sound performed on pt's right arm where pt's IV infiltrated and stated that he was not having surgery until his arm is scanned! An ultra sound of the arm was ordered and I spoke with the [employer] answering her questions as to why and what was needed.
--- NOTE | 2022-03-18 10:07 | WPDANESEPPF ---
Anes - Initial Pre Proc Eval Procedure: Operation Date: 03/18/22 13:00 Proposed Procedures p Removal Of Fecal Impaction - Hollis Hutchison MD Date/Time: 03/18/22 10:07 Surgeon: Francisco Jerez MD Pre Op Diagnosis: Stercoral Colitis Patient Data Age: 32 Gender: M Height: 1.75 m Weight: 85.3 kg Last Vital Signs Temp 36.2 C L 03/18/22 06:00 Pulse 78 03/18/22 06:00 Resp 16 03/18/22 06:00 BP 125/83 03/18/22 06:00 Pulse Ox 99 03/18/22 06:00 O2 Del Method Room Air 03/18/22 08:30 Allergies Allergy/AdvReac Type Severity Reaction Status Date / Time No Known Allergies Allergy Verified 03/18/22 12:09 Home Medications Medication Instructions Recorded Confirmed Type aripiprazole 2 mg tablet 2 mg PO DAILY 03/16/21 03/17/22 History benztropine 0.5 mg tablet 0.5 mg PO BID 03/16/21 03/17/22 History divalproex 500 mg tablet,delayed 500 mg PO BID 03/16/21 03/17/22 History release albuterol sulfate 90 mcg/actuation 2 puff inhalation Q4H PRN 01/28/22 03/17/22 Rx aerosol inhaler shortness of breath or wheezing #8.5 grams Laboratory Tests 03/18/22 03/18/22 08:32 08:32 WBC 8.3 K/mm3 K/mm3 (4.5-10.0) RBC 5.30 M/mm3 M/mm3 (4.6-6.20) Hgb 16.0 g/dL g/dL (14.0-18.0) Hct 47.3 % % (42.0-52.0) MCV 89.2 fl fl (80-100) MCH 30.2 pg pg (26-34) MCHC 33.8 g/dl g/dl (32-36) RDW 13.0 % % (11.5-14.5) Plt Count 219 k/mm3 k/mm3 (150-375) MPV 9.6 fl fl (7.4-10.4) Immature Gran % (Auto) 0.5 % % (0-0.5) Neut % (Auto) 58.5 % % (45.5-73.1) Lymph % (Auto) 26.3 % % (18.3-44.2) Lawrence % (Auto) 11.5 % H % (2.6-8.5) Eos % (Auto) 2.8 % % (0-4.4) Baso % (Auto) 0.4 % % (0.2-1.2) Lymph # (Auto) 2.19 K/mm3 K/mm3 (0.9-3.2) Lawrence # (Auto) 1.0 K/mm3 H K/mm3 (0.1-0.6) Eos # (Auto) 0.2 K/mm3 K/mm3 (0-0.3) Baso # (Auto) 0.0 K/mm3 K/mm3 (0.0-0.1) Abs Immat Gran (auto) 0.04 K/mm3 H K/mm3 (0.00-0.031) Absolute Neuts (auto) 4.9 K/mm3 K/mm3 (1.3-6.7) Absolute Nucleated RBC 0.0 K/mm3 K/mm3 (0.0-0.012) Nucleated RBC % 0.0 % % (0.0-0.2) Sodium 141 mmol/L mmol/L (137-145) Potassium 4.1 mmol/L mmol/L (3.4-5.0) Chloride 105 mmol/L mmol/L (98-107) Carbon Dioxide 30 mmol/L mmol/L (22-30) Anion Gap 6 mmol/L L mmol/L (8-16) BUN 7 mg/dL L mg/dL (9-20) Creatinine 0.70 mg/dL mg/dL (0.7-1.3) Estim Creat Clear Calc 131 ml/min ml/min Estimated GFR > 60 (59 - ) Glucose 90 mg/dL mg/dL (65-110) Calcium 8.5 mg/dL mg/dL (8.4-10.2) Magnesium 2.1 mg/dL mg/dL (1.6-2.3) Total Bilirubin 0.8 mg/dL mg/dL (0.2-1.3) AST 22 U/L U/L (17-59) ALT 31 U/L U/L (6-50) Alkaline Phosphatase 74 U/L U/L (38-126) Total Protein 7.0 g/dL g/dL (6.3-8.2) Albumin 3.8 g/dL g/dL (3.5-5.1) Patient hx anesthesia problems: none Family hx anesthesia problems: none Results Review: All pre-operative results and documents have been reviewed as part of the pre-operative evaluation. [facility] Past Medical History Medical History (Updated 03/18/22 @ 10:08 by Edgar Foster MD) Asthma Cerebral palsy Overweight (BMI 25.0-29.9) Seizure disorder Urinary incontinence Family History Family History Father Acute myocardial infarction Mother Asthma Grandparent Breast cancer Sibling Cerebrovascular accident Grandparent Atrial fibrillation Social History Social History Smoking status: Never smoker Tobacco type: cigars Second hand tobacco smoke exposure: No Alcohol intake: never Substance use: never Substance use type: does not use Lack of Transportation: No Lack of Food: Nii
--- NOTE | 2022-03-18 12:05 | PC.NURSE ---
To GI Lab per [ ], IV [ ]. Report given to [ ].
[2022-03-18 12:13] VITALS: BP 124/75; PULSE 83; RESP 20; TEMP 36.3; O2SAT 100
[2022-03-18] MEDS: LACTATED RINGERS 1,000 ML 150 ML IV CONT (12:16)
[2022-03-18 13:07] VITALS: BP 99/67; PULSE 74; RESP 22; O2SAT 99
[2022-03-18 13:17] VITALS: BP 111/76; PULSE 72; RESP 20; O2SAT 99
[2022-03-18 13:27] VITALS: BP 112/73; PULSE 70; RESP 20; O2SAT 98
--- NOTE | 2022-03-18 13:44 | PC.NURSE ---
Returned from GI Lab. Report received from [ ].
[2022-03-18] MEDS: MAGNESIUM HYDROXIDE SUSP 30 ML UDC PO (13:54)
[2022-03-18] MEDS: BISACODYL 5 MG TABLET EC 20 MG PO (13:54)
--- NOTE | 2022-03-18 15:18 | OP_ITS ---
DATE OF PROCEDURE: 03/18/2022 PREOPERATIVE DIAGNOSIS: Fecal impaction. POSTOPERATIVE DIAGNOSIS: Fecal impaction. DESCRIPTION OF PROCEDURE: With the patient in the left lateral decubitus position and under sedation by Anesthesia, the rectal exam was performed. Soft stool was seen around the anus and was felt in the rectal vault. A firm impaction of stool was felt at the tip of the finger. Pushing down on his pelvis with my other hand, I was able to reach and break up part of this impaction. Because of its distance from the anus, not much that could be removed, but certainly part of it has been broken up. The patient tolerated the procedure well. D I MT: Brandon
--- NOTE | 2022-03-18 16:14 | PM.IMPN ---
Progress Note: A&P Assessment and Plan (1) Fecal impaction of colon: Code(s): K56.41 - Fecal impaction Status: Acute Assessment and Plan: Patient presented with chief complaint of abdomen pain CT shows fecal impaction in the sigmoid colon and the rectum Start GoLYTELY p.o.8 oz fluid every 10 minutes until large bowel movements. GI consulted Keep patient NPO, start normal saline IV until fecal impaction resolves If not resolved will knee removal impaction and anaesthesia Stay on his MiraLax regularly s/p manual disimpaction 03/18/2022 contineu with bowel regimen (2) Fecal impaction in rectum: Code(s): K56.41 - Fecal impaction Status: Acute (3) Cerebral palsy: Code(s): G80.9 - Cerebral palsy, unspecified Status: Chronic (4) Seizure disorder: Code(s): G40.909 - Epilepsy, unspecified, not intractable, without status epilepticus Status: Chronic Assessment and Plan: Resume Depakote 500 mg b.i.d. p.o. Plan right upper extremity edema: possilbe dvt vs cellutlisi. will cover with antibioics. venousd uplex to check again. was not checked the upper arm Subjective Date/time seen: 03/18/22 16:14 Interval history: he went for manual disimpaction today. no feve, chills, sob, chest pain. his right arm is swollen. lower arm was dopplered but he refused to get the upper arm done. discussed iwth the family Review of Systems Review of Systems: All systems reviewed & are unremarkable except as noted in HPI and below Exam Narrative: GENERAL: Pleasant, in no acute distress. Well-nourished. - EYES: EOMI. Anicteric. - HENT: Moist mucous membranes. - LUNGS: Clear to auscultation bilaterally, no wheezing, rhonchi, or rales. - CARDIOVASCULAR: Regular rate and rhythm. No murmur. No JVD. - ABDOMEN: Soft, left lower quadrant tender and mildly distended. No palpable masses. - EXTREMITIES: No edema. Peripheral pulses 2+. Non-tender. right arm is swolleen and tendde rto cough, some weeping blisters on lower arms noted - NEUROLOGIC: No focal neurological deficits. CN II-XII grossly intact. - PSYCHIATRIC: Awake, Alert and note oriented x 3. Appropriate mood and affect. - SKIN: No rashes or lesions. Warm. - LYMPH: No cervical lymphadenopathy. Objective Data Vital Signs Vital Signs: Vital Signs - 24 hr 03/17/22 16:28 03/17/22 22:00 03/17/22 20:00 Temperature 98.4 F 97.7 F Pulse Rate 76 75 Respiratory Rate 18 16 Blood Pressure 111/69 129/93 H Pulse Oximetry 98 96 Oxygen Delivery Room Air 03/18/22 06:00 03/18/22 08:30 03/18/22 12:13 Temperature 97.1 F L 97.4 F L Pulse Rate 78 83 Respiratory Rate 16 20 Blood Pressure 125/83 124/75 Pulse Oximetry 99 100 Oxygen Delivery Room Air Room Air 03/18/22 13:07 03/18/22 13:17 03/18/22 13:27 Temperature Pulse Rate 74 72 70 Respiratory Rate 22 H 20 20 Blood Pressure 99/67 L 111/76 112/73 Pulse Oximetry 99 99 98 Oxygen Delivery Room Air Room Air Room Air Intake/Output Intake/Output: Intake & Output 03/15/22 03/16/22 03/17/22 03/18/22 23:59 23:59 23:59 23:59 Intake Total 3618 350 Output Total 2300 Balance 1318 350 Meds/Results Medications: Active Medications Generic Name Dose Route Start Last Admin Trade Name Freq PRN Reason Stop Dose Admin Albuterol 2 puff 03/17/22 09:17 Albuterol Sulfate (*Sp) Aerosol 1 Puff INHALATION Q4H PRN shortness of breath or wheezing Aripiprazole 2 mg 03/18/22 05:00 03/18/22 04:51 Aripiprazole 2 Mg Tablet PO 2 mg DAILY@0500 STEW Administration Benztropine Mesylate 0.5 mg 03/18/22 05:00 03/18/22 04:50 Benztropine Mesylate 0.5 Mg Tablet PO 0.5 mg 0500,1700 STEW Administration Divalproex Sodium 500 mg 03/18/22 05:00 03/18/22 04:[address] 250 Mg Tabec PO 500 mg 0500,1700 STEW Administration Enoxaparin Sodium 40 mg 03/17/22 09:00 03/18/22 08:04 Enoxaparin 40 Mg/0.4 Ml Syringe SUB-Q Not G
[2022-03-18 22:00] VITALS: BP 117/61; PULSE 76; RESP 18; TEMP 36.2; O2SAT 98
[2022-03-19] MEDS: ARIPiprazole 2 MG TABLET PO (04:27)
[2022-03-19] MEDS: DIVALPROEX SODIUM DR 250 MG TABEC 500 MG PO (04:27)
[2022-03-19] MEDS: BENZTROPINE MESYLATE 0.5 MG TABLET PO (04:28)
[2022-03-19 06:00] VITALS: BP 124/68; PULSE 73; RESP 18; TEMP 36.4; O2SAT 98
[2022-03-19 07:51] LABS: Basophils Percent Auto 0.4 % (0.2-1.2); Eosinophils Absolute Auto 0.3 K/mm3 (0-0.3); Hematocrit 46.8 % (42.0-52.0); Immature Granulocyte Absolute 0.05 K/mm3 (0.00-0.031); Immature Granulocyte Percent A 0.6 % (0-0.5); Lymphocytes Absolute Auto 2.44 K/mm3 (0.9-3.2); Lymphocytes Percent Auto 28.9 % (18.3-44.2); Mean Corpuscular HGB Conc 34.2 g/dl (32-36); Mean Corpuscular Hemoglobin 30.5 pg (26-34); Mean Corpuscular Volume 89.1 fl (80-100); Mean Platelet Volume 10.2 fl (7.4-10.4); Monocytes Percent Auto 12.1 % (2.6-8.5); Neutrophils Absolute Auto 4.6 K/mm3 (1.3-6.7); Platelet Count Result 217 k/mm3 (150-375); Red Blood Count 5.25 M/mm3 (4.6-6.20); Red Cell Distribution Width 12.7 % (11.5-14.5); White Blood Count 8.4 K/mm3 (4.5-10.0)
[2022-03-19 08:13] LABS: Alanine Aminotransferase 30 U/L (6-50); Alkaline Phosphatase 81 U/L (38-126); Anion Gap 6 mmol/L (8-16); Aspartate Amino Transferase 29 U/L (17-59); Bilirubin,Total 0.9 mg/dL (0.2-1.3); Blood Urea Nitrogen 5 mg/dL (9-20); Carbon Dioxide 26 mmol/L (22-30); Chloride 102 mmol/L (98-107); Estimated CRCL calculation 131 ml/min; Estimated Glomerular Filt Rate > 60; Glucose 84 mg/dL (65-110); Magnesium 2.4 mg/dL (1.6-2.3); Potassium 4.2 mmol/L (3.4-5.0); Sodium 134 mmol/L (137-145)
[2022-03-19] MEDS: ENOXAPARIN 40 MG/0.4 ML SYRINGE SUB-Q (09:05)
--- NOTE | 2022-03-19 15:53 | PM.DS ---
DS: Admitting Diagnosis Discharge Date Admitting Diagnosis abdominal pain DS: Discharge Diagnosis Discharge Diagnosis (1) Fecal impaction of colon: Code(s): K56.41 - Fecal impaction Status: Acute (2) Fecal impaction in rectum: Code(s): K56.41 - Fecal impaction Status: Acute (3) Cerebral palsy: Code(s): G80.9 - Cerebral palsy, unspecified Status: Chronic (4) Seizure disorder: Code(s): G40.909 - Epilepsy, unspecified, not intractable, without status epilepticus Status: Chronic DS: Summary Hospital Course Hospital Course: # Fecal impaction of colon: Patient presented with chief complaint of abdomen pain CT shows fecal impaction in the sigmoid colon and the rectum Start GoLYTELY p.o.8 oz fluid every 10 minutes until large bowel movements.? GI consulted patient underwent manual disimpaction under anaesthesia on 03/18/2022. patient Continued on MiraLax daily No further abdominal pain nausea vomiting. Having bowel movement Abdominal x-ray unchanged however now asymptomatic and advise continued bowel regimen as an outpatient basis Follow-up with Dr. Hutchison # cerebral palsy # seizure disorder # right upper extremity edema possible DVT versus cellulitis. Venous duplex was done which ruled out DVT. Likely due to infiltrated IV line. Improved with elevation. Continue wound care and elevation Follow-up with PCP if not improved Time Spent with Patient Time attestation: Total time spent providing and/or coordinating discharge services: 45 minutes Exam Narrative: GENERAL: Pleasant, in no acute distress. Well-nourished. - EYES: EOMI. Anicteric. - HENT: Moist mucous membranes. - LUNGS: Clear to auscultation bilaterally, no wheezing, rhonchi, or rales. - CARDIOVASCULAR: Regular rate and rhythm. No murmur. No JVD. - ABDOMEN: Soft, left lower quadrant tender and mildly distended. No palpable masses. - EXTREMITIES: No edema. Peripheral pulses 2+. Non-tender. right arm is swolleen mildly tender, some weeping blisters on lower arms noted which is improved from yesterday - NEUROLOGIC: No focal neurological deficits. CN II-XII grossly intact. - PSYCHIATRIC: Awake, Alert and note oriented x 3. Appropriate mood and affect. - SKIN: No rashes or lesions. Warm. - LYMPH: No cervical lymphadenopathy. DS: Data Data Completed and Pending Labs on day of discharge: Labs from last 24 hours 03/19/22 03/19/22 07:10 07:10 WBC 8.4 RBC 5.25 Hgb 16.0 Hct 46.8 MCV 89.1 MCH 30.5 MCHC 34.2 RDW 12.7 Plt Count 217 MPV 10.2 Immature Gran % (Auto) 0.6 H Neut % (Auto) 55.0 Lymph % (Auto) 28.9 [place] % (Auto) 12.1 H Eos % (Auto) 3.0 Baso % (Auto) 0.4 Lymph # (Auto) 2.44 [place] # (Auto) 1.0 H Eos # (Auto) 0.3 Baso # (Auto) 0.0 Abs Immat Gran (auto) 0.05 H Absolute Neuts (auto) 4.6 Absolute Nucleated RBC 0.0 Nucleated RBC % 0.0 Sodium 134 L Potassium 4.2 Chloride 102 Carbon Dioxide 26 Anion Gap 6 L BUN 5 L Creatinine 0.70 Estim Creat Clear Calc 131 Estimated GFR > 60 Glucose 84 Calcium 9.0 Magnesium 2.4 H Total Bilirubin 0.9 AST 29 ALT 30 Alkaline Phosphatase 81 Total Protein 7.0 Albumin 4.0 Procedures/Treatments: DATE OF PROCEDURE:? 03/18/2022 ? ? PREOPERATIVE DIAGNOSIS:? Fecal impaction. ? POSTOPERATIVE DIAGNOSIS:? Fecal impaction. ? DESCRIPTION OF PROCEDURE:? With the patient in the left lateral decubitus position and under sedation by Anesthesia, the rectal exam was performed.? Soft stool was seen around the anus and was felt in the rectal vault.? A firm impaction of stool was felt at the tip of the finger.? Pushing down on his pelvis with my other hand, I was able to reach and break up part of this impaction.? Because of its distance from the anus, not much that could be removed, but certainly part of it has been broken up.? The patient tolerated the procedure wel
--- NOTE | 2022-03-19 16:27 | WPDGIPROGNO ---
Progress Note: A&P Assessment and Plan (1) Fecal impaction of colon: Code(s): K56.41 - Fecal impaction Status: Acute Assessment and Plan: XR still with stool in rectum but passing BM, s/p partial manual disimpaction he is going home and will continue with laxatives, fiber in diet and enema as needed he is comfortable, no more abdominal pain, no n/v follow-up office in 3-4 weeks (2) Cerebral palsy: Code(s): G80.9 - Cerebral palsy, unspecified Status: Chronic (3) Seizure disorder: Code(s): G40.909 - Epilepsy, unspecified, not intractable, without status epilepticus Status: Chronic Subjective Date/time seen: 03/19/22 16:27 Interval history: no abdominal pain, comfortable, tolerated diet Review of Systems Review of Systems: All systems reviewed & are unremarkable except as noted in HPI and below Exam Const: General: alert Orientation/consciousness: patient oriented x3 HENMT: Face/Nose/Sinus: Normal nares present Eyes: General: appearance normal, both eyes and all related structures Neck: Neck: supple Resp: Auscultation: clear to auscultation bilaterally Cardio: Rhythm: regular rhythm GI: Inspection: normal to inspection GI Palp: Yes Soft to palpation and No Guarding due to palpation present (GI) Auscultation: normal bowel sounds Skin: General skin exam: normal color Neuro: General: patient oriented x3 Other: h/o cerebral palsy Psych: Affect: normal affect Objective Data Vital Signs Vital Signs: Vital Signs - 24 hr 03/18/22 22:00 03/18/22 20:42 03/19/22 06:00 Temperature 97.1 F L 97.5 F L Pulse Rate 76 73 Respiratory Rate 18 18 Blood Pressure 117/61 124/68 Pulse Oximetry 98 98 Oxygen Delivery Room Air 03/19/22 08:00 Temperature Pulse Rate Respiratory Rate Blood Pressure Pulse Oximetry Oxygen Delivery Room Air Intake/Output Intake/Output: Intake & Output 03/16/22 03/17/22 03/18/22 03/19/22 23:59 23:59 23:59 23:59 Intake Total 3618 2470 1025 Output Total 2300 1700 700 Balance 1318 770 325 Meds/Results Medications: Active Medications Generic Name Dose Route Start Last Admin Trade Name Freq PRN Reason Stop Dose Admin Albuterol 2 puff 03/17/22 09:17 Albuterol Sulfate (*Sp) Aerosol 1 Puff INHALATION Q4H PRN shortness of breath or wheezing Aripiprazole 2 mg 03/18/22 05:00 03/19/22 04:27 Aripiprazole 2 Mg Tablet PO 2 mg DAILY@0500 STEW Administration Benztropine Mesylate 0.5 mg 03/18/22 05:00 03/19/22 04:28 Benztropine Mesylate 0.5 Mg Tablet PO 0.5 mg 0500,1700 STEW Administration Divalproex Sodium 500 mg 03/18/22 05:00 03/19/22 04:[address] 250 Mg Tabec PO 500 mg 0500,1700 STEW Administration Enoxaparin Sodium 40 mg 03/17/22 09:00 03/19/22 09:05 Enoxaparin 40 Mg/0.4 Ml Syringe SUB-Q 40 mg DAILY STEW Administration Cefepime HCl 1 gm in 50 mls @ 100 mls/hr 03/18/22 17:00 03/19/22 10:32 Maxipime 1 Gm/D5w 50 Ml IVPB Infused Q8H STEW Infusion Vancomycin HCl 1,250 mg in 250 mls @ 200 mls/hr 03/18/22 17:00 03/19/22 09:27 Vancomycin 1,250 Mg/D5w 250 Ml IVPB Infused Q12H STEW Infusion Magnesium Hydroxide 30 ml 03/17/22 01:46 03/18/22 13:54 Magnesium Hydroxide Susp 30 Ml Udc PO 30 ml DAILY PRN Administration Constipation Miconazole Nitrate 1 applic 03/18/22 12:00 03/19/22 09:27 Miconazole 2% Antifungal Ointment 56 Gm TOPICAL 1 applic Q12HR STEW Administration Radiology Results: ITS Impressions Abdomen/Pelvis CT 03/16/22 22:46 IMPRESSION: Marked fecal impaction with associated findings concerning for stercoral colitis. The volume of impacted fecal material is slightly less than in the prior study but the degree of surrounding inflammatory change has increased. Venous Doppler Study 03/18/22 18:53 IMPRESSION: 1. No evidence of deep venous thrombosis. Abdomen X-Ray
== END 2022-03-19 17:04 | disposition home or self-care (01) | DRG 247 ==
LOC: ANHED 03-17 01:31 → ANH3MEDSUR 03-17 02:11
PROVIDERS: Internal Medicine Gastroenterology; Admitting Provider Hospitalist; Emergency Provider Physician Assistant; PCP Family Medicine Adolescent Medicine; Visit Provider Internal Medicine
PROC: 0DJD8ZZ Inspection of Lower Intestinal Tract, Via Natural or Artificial Opening Endoscopic (ICD-10-PCS; CPT 45300; principal; 2022-03-18 13:00)
DX: K56.41 Fecal impaction (principal); G40.909 Epilepsy, unspecified, not intractable, without status epilepticus; G80.9 Cerebral palsy, unspecified; R32 Unspecified urinary incontinence; L03.113 Cellulitis of right upper limb; T80.1XXA Vascular complications following infusion, transfusion and therapeutic injection, initial encounter; Z20.822 Contact with and (suspected) exposure to COVID-19; R60.9 Edema, unspecified
CPT/HCPCS: 36415; 74018; 74177; 80048; 80053; 83605; 83690; 83735; 85025; 87637; 93971; 96360; 96361; 96372; 99285; A9270; G0378; G0379; J0692; J1650; J2704; J3370; J7042; J7120; Q9967

== ENCOUNTER 2023-11-18 16:30 | Emergency (ER) | payer OTHER, SELFPAY ==
--- NOTE | 2023-11-18 16:35 | ED.SKABFB ---
HPI - Skin/Abscess/Foreign Bdy General Chief complaint: Upper Respiratory Infection Stated complaint: Rash Time Seen by Provider: 11/18/23 16:35 Source: patient Mode of arrival: ambulatory Limitations: no limitations History of Present Illness HPI narrative: 33-year-old male with history of cerebral palsy presents with his parents with complaint of sore throat, fever, painful sores to lips. Symptoms started yesterday. Patient denies cough, congestion. Denies nausea vomiting diarrhea. No urinary symptoms. All systems reviewed and negative except as noted above. Related Data Home Medications Medication Instructions Recorded Confirmed aripiprazole 2 mg tablet 2 mg PO DAILY 03/16/21 11/18/23 benztropine 0.5 mg tablet 0.5 mg PO BID 03/16/21 11/18/23 divalproex 500 mg tablet,delayed 500 mg PO BID 03/16/21 11/18/23 release ascorbic acid (vitamin C) 500 mg 500 mg PO DAILY 04/18/23 capsule,extended release (Vitamin C) divalproex 125 mg tablet,delayed 125 mg PO BID 04/18/23 11/18/23 release multivitamin 1 tablet PO DAILY 04/18/23 11/18/23 oxcarbazepine 150 mg tablet mg 11/18/23 11/18/23 Allergies Allergy/AdvReac Type Severity Reaction Status Date / Time No Known Allergies Allergy Verified 12/05/22 10:58 Review of Systems Review of Systems: CONSTITUTIONAL: Reports fever. Denies chills, or sweats. EYES: Denies visual changes, redness, or discharge. ENT: Denies rhinorrhea, congestion. Reports sore throat, source to lips. Denies otalgia. CARDIOVASCULAR: Denies chest pain, palpitations, or edema. RESPIRATORY: Denies cough or dyspnea. GASTROINTESTINAL: Denies abdominal pain, nausea, vomiting, or diarrhea. GENITOURINARY: Denies dysuria or hematuria. SKIN: Denies rash or itching. MUSCULOSKELETAL: Denies back pain, joint pain, or myalgia. NEUROLOGIC: Denies headache, numbness, or weakness. PSYCHIATRIC: Denies anxiety or depression. All other systems reviewed are negative, except as documented in HPI. [facility] Past Medical History Medical History (Updated 11/18/23 @ 17:13 by Cris Abrams NP) Asthma Cerebral palsy Fecal impaction of colon Overweight (BMI 25.0-29.9) Seizure disorder Urinary incontinence Family History Family History Father Acute myocardial infarction Mother Asthma Grandparent Breast cancer Sibling Cerebrovascular accident Grandparent Atrial fibrillation Social History Social History Smoking status: Never smoker Tobacco type: cigars Second hand tobacco smoke exposure: No Alcohol intake: never Substance use: never Substance use type: does not use Lack of Transportation: No Lack of Food: Never True Current Housing: I Have Housing Concerned About Future Housing: No Difficulty Paying Gas/Electric Bills: No Difficulty Paying for Meds: No Currently Unemployed: No Education: High School Diploma/GED Difficulty w/ Childcare or Family Care: No Living arrangements: with family Occupation/Education: student Gender identity (if verbalized by the patient): Male Sexual Orientation (if Verbalized by the Patient): Straight or Heterosexual Spiritual care concerns: No Agree to blood products: Yes Comments At time of signature, agree with nursing past medical, surgical, social and family history. There is no relevant family history pertinent to the presenting complaint. Exam Narrative: GENERAL: This is a well-nourished, well-developed patient, in no apparent distress. HEAD: normocephalic, atraumatic. EYES: PERRL. Sclera clear/white. Vision is grossly intact. EARS: External ears normal, auditory canals clear and without drainage, TMs normal without perforation. Hearing grossly intact. NOSE: External nose normal with no obvious nasal discharge, nares without redness, no rhinorrhea. THROAT: Mucous membranes moist, erythema and swel
[2023-11-18 16:50] VITALS: BP 146/94; PULSE 134; RESP 16; TEMP 38.7; O2SAT 100
[2023-11-18 16:51] VITALS: BP 146/94; PULSE 134; RESP 16; TEMP 38.7; O2SAT 100
[2023-11-18] MEDS: ACETAMINOPHEN ELIXIR 325 MG/10.15 ML UDC 650 MG PO (16:51)
[2023-11-18 17:33] VITALS: TEMP 38.2
[2023-11-20 14:28] LABS: EDSTREPNEGPOS1 Negative (Negative); EDUAAPPEAR Clear; EDUABILI Negative (Negative); EDUABLOOD Negative (Negative); EDUACOLOR1 Dark; EDUAGLUCOSE Negative (Negative); EDUAKETONE Trace (Negative); EDUALEUKO Negative (Negative); EDUANITRATE Negative (Negative); EDUAPROTEIN Trace (Negative); EDUAUROBILI 0.2
[2023-11-24 15:59] LABS: Source NOT GIVEN
== END 2023-11-18 17:37 | disposition home or self-care (01) ==
PROVIDERS: Emergency Provider Nurse Practitioner Family; PCP Family Medicine Adolescent Medicine
DX: B00.9 Herpesviral infection, unspecified (principal); J45.909 Unspecified asthma, uncomplicated; G80.9 Cerebral palsy, unspecified; G40.909 Epilepsy, unspecified, not intractable, without status epilepticus
CPT/HCPCS: 81003; 87081; 87086; 87255; 87880; 99213; A9270; G0463

== ENCOUNTER 2023-11-20 08:17 | Emergency (ER) | payer OTHER, SELFPAY ==
[2023-11-20 08:26] VITALS: BP 136/80; PULSE 88; RESP 18; TEMP 36.8; O2SAT 99
--- NOTE | 2023-11-20 08:35 | ED.DENTAL ---
HPI - Dental/Oral General Chief complaint: Dental/Oral Stated complaint: Swollen Lip Time Seen by Provider: 11/20/23 08:39 Source: patient Mode of arrival: ambulatory Limitations: no limitations History of Present Illness HPI Narrative: Moe is a 33-year-old male patient presenting to the clinic today with complaints fever, sore throat, lip sores/swelling x3 days. He was seen on the 17 of November and diagnosed with herpes virus section. Strep testing was performed that day and was negative. Was given Valtrex 1 g p.o. b.i.d. x1 day. Mother reports that his symptoms have not improved and he is having more pain with eating and drinking. Vital signs are stable. Nurse practitioner at that time was possibly concerned about Pedro Enio syndrome as patient just started carbamazepine 2 weeks prior to developing his symptoms. Spoke with the ER physician and he told her that that was unlikely and that they felt that it was more likely a herpes viral infection. Mother has held his carbamazepine. Related Data Home Medications Medication Instructions Recorded Confirmed aripiprazole 2 mg tablet 2 mg PO DAILY 03/16/21 11/20/23 benztropine 0.5 mg tablet 0.5 mg PO BID 03/16/21 11/20/23 divalproex 500 mg tablet,delayed 500 mg PO BID 03/16/21 11/20/23 release ascorbic acid (vitamin C) 500 mg 500 mg PO DAILY 04/18/23 11/20/23 capsule,extended release (Vitamin C) divalproex 125 mg tablet,delayed 125 mg PO BID 04/18/23 11/20/23 release multivitamin 1 tablet PO DAILY 04/18/23 11/20/23 oxcarbazepine 150 mg tablet 150 mg PO DAILY 11/18/23 11/20/23 Allergies Allergy/AdvReac Type Severity Reaction Status Date / Time No Known Allergies Allergy Verified 11/20/23 08:25 Review of Systems Review of Systems: Pertinent positives per HPI. Patient denies any fever, chills, rash, headache, visual changes, dizziness, cough, runny nose, shortness of breath, chest pain, palpitations, nausea, vomiting, diarrhea, constipation, abdominal pain, or any urinary issues. [facility] [place] Past Medical History Medical History Asthma Cerebral palsy Fecal impaction of colon Overweight (BMI 25.0-29.9) Seizure disorder Urinary incontinence Family History Family History Father Acute myocardial infarction Mother Asthma Grandparent Breast cancer Sibling Cerebrovascular accident Grandparent Atrial fibrillation Social History Social History Smoking status: Never smoker Tobacco type: cigars Second hand tobacco smoke exposure: No Alcohol intake: never Substance use: never Substance use type: does not use Lack of Transportation: No Lack of Food: Never True Current Housing: I Have Housing Concerned About Future Housing: No Difficulty Paying Gas/Electric Bills: No Difficulty Paying for Meds: No Currently Unemployed: No Education: High School Diploma/GED Difficulty w/ Childcare or Family Care: No Living arrangements: with family Occupation/Education: student Gender identity (if verbalized by the patient): Male Sexual Orientation (if Verbalized by the Patient): Straight or Heterosexual Spiritual care concerns: No Agree to blood products: Yes Comments At the time of my signature, I reviewed and agree with the nursing past medical, surgical, social, and family history. There is no relevant family history pertinent to the patient complaint. Exam Narrative: General: Well-developed, well nourished, in no apparent distress Head: Normocephalic, atraumatic Eyes: Pupils equally round and reactive to light bilaterally, EOM intact, sclera and conjunctive clear, no discharge, lids normal Ears: TMs intact and clear, ear canals clear, no drainage, grossly hearing normal. Nose: Nares patent, no discharge, no inflammation, no sinus ten
== END 2023-11-20 08:45 | disposition home or self-care (01) ==
PROVIDERS: Emergency Provider Nurse Practitioner Family
DX: K12.1 Other forms of stomatitis (principal); K12.30 Oral mucositis (ulcerative), unspecified; J45.909 Unspecified asthma, uncomplicated; G80.9 Cerebral palsy, unspecified; G40.909 Epilepsy, unspecified, not intractable, without status epilepticus
CPT/HCPCS: 99213; G0463

== ENCOUNTER 2023-11-23 18:14 | Emergency (ER) | payer OTHER, SELFPAY ==
[2023-11-23 18:30] VITALS: BP 129/87; PULSE 85; RESP 16; TEMP 36.5; O2SAT 99
--- NOTE | 2023-11-23 18:31 | ED.SKABFB ---
HPI - Skin/Abscess/Foreign Bdy General Chief complaint: Skin/Abscess/Foreign Body Stated complaint: rash on hands and bottoms of feet Time Seen by Provider: 11/23/23 18:36 Source: patient Mode of arrival: ambulatory Limitations: no limitations History of Present Illness HPI narrative: 33-year-old quadriplegic male presented for complaint of red spots/rash noted to the palms and soles of feet today. Patient is currently being treated for severe stomatitis with valacyclovir, prednisone, and cephalexin. He has been seen 4 times in the last week since the onset of mouth sores. At the onset he reported fever and decreased appetite. Mother reports the mouth sores have improved significantly since starting the medicines and he has better po intake and increased urinary output. He is scheduled with dentist tomorrow. Related Data Home Medications Medication Instructions Recorded Confirmed aripiprazole 2 mg tablet 2 mg PO DAILY 03/16/21 11/23/23 benztropine 0.5 mg tablet 0.5 mg PO BID 03/16/21 11/23/23 divalproex 500 mg tablet,delayed 500 mg PO BID 03/16/21 11/23/23 release ascorbic acid (vitamin C) 500 mg 500 mg PO DAILY 04/18/23 11/23/23 capsule,extended release (Vitamin C) divalproex 125 mg tablet,delayed 125 mg PO BID 04/18/23 11/23/23 release multivitamin 1 tablet PO DAILY 04/18/23 11/23/23 oxcarbazepine 150 mg tablet 150 mg PO DAILY 11/18/23 11/23/23 Allergies Allergy/AdvReac Type Severity Reaction Status Date / Time No Known Allergies Allergy Verified 11/23/23 18:35 Review of Systems Review of Systems: CONSTITUTIONAL: Denies body aches, fever, chills, or sweats. EYES: Denies visual changes, redness, or discharge. ENT: repors mouth sores Denies rhinorrhea, congestion CARDIOVASCULAR: Denies chest pain, palpitations, or edema. RESPIRATORY: Denies cough or dyspnea. GASTROINTESTINAL: Denies abdominal pain, nausea, vomiting, or diarrhea. SKIN: per HPI MUSCULOSKELETAL: Denies back pain, joint pain, or myalgia. NEUROLOGIC: Denies headache PMFSH Past Medical History Medical History Asthma Cerebral palsy Fecal impaction of colon Overweight (BMI 25.0-29.9) Seizure disorder Urinary incontinence Family History Family History Father Acute myocardial infarction Mother Asthma Grandparent Breast cancer Sibling Cerebrovascular accident Grandparent Atrial fibrillation Social History Social History Smoking status: Never smoker Tobacco type: cigars Second hand tobacco smoke exposure: No Alcohol intake: never Substance use: never Substance use type: does not use Lack of Transportation: No Lack of Food: Never True Current Housing: I Have Housing Concerned About Future Housing: No Difficulty Paying Gas/Electric Bills: No Difficulty Paying for Meds: No Currently Unemployed: No Education: High School Diploma/GED Difficulty w/ Childcare or Family Care: No Living arrangements: with family Occupation/Education: student Gender identity (if verbalized by the patient): Male Sexual Orientation (if Verbalized by the Patient): Straight or Heterosexual Spiritual care concerns: No Agree to blood products: Yes Comments At time of signature, I have reviewed and agree with nursing past medical, surgical, social and family history unless otherwise noted. Please see nursing chart for further information. There is no relevant family history pertinent to the presenting complaint Exam Narrative: GENERAL: Well-appearing; quadriplegic EYES: conjunctivae clear, and EOMI. ENT: Mucous membranes moist. Lips with crusted open lesions, Oropharynx erythematous with scattered white vesicular lesions. NECK: Supple. CHEST: Clear to auscultation. HEART: Regular rate and rhythm. SKIN: Warm, dry. Palms and soles
== END 2023-11-23 19:05 | disposition home or self-care (01) ==
PROVIDERS: Emergency Provider Nurse Practitioner Family; PCP Family Medicine Adolescent Medicine
DX: B09 Unspecified viral infection characterized by skin and mucous membrane lesions (principal); J45.909 Unspecified asthma, uncomplicated; G80.9 Cerebral palsy, unspecified; G40.909 Epilepsy, unspecified, not intractable, without status epilepticus
CPT/HCPCS: 99211; G0463

== ENCOUNTER 2024-05-28 13:31 | Emergency (ER) | payer OTHER, SELFPAY ==
--- NOTE | ~2024-05-28 | CT_ITS ---
CLINICAL INDICATION: Right-sided abdominal pain and vomiting COMPARISON: 03/16/2022 . TECHNIQUE: Multiple contiguous axial images of the abdomen and pelvis were performed following the ad ministration of with 100 mL Omnipaque-350 intravenous contrast The dose-length product (DLP) was 1006.58 mGy-cm. Automated exposure control and iterative reconstruction technique were employed. FINDINGS/OBSERVATIONS: Visualized lower thorax: The bilateral lung bases are clear. The heart is of normal size, without pericardial effusion. Small hiatal hernia is present. Liver: The liver demonstrates homogeneous enhancement and is not enlarged. Gallbladder and biliary system: The gallbladder is only minimally distended, and otherwise unremarkable. Pancreas: The pancreas enhances homogeneously without ductal dilatation. Spleen: The spleen enhances homogeneously and is not enlarged measuring 8 cm in longitudinal dimension. Kidneys: Subcentimeter foci of fluid attenuation within the bilateral kidneys, unchanged from prior a nd too small to characterize. The remainder of the bilateral kidneys otherwise enhance symmetrically without hydronephrosis or cameron l calculi. Adrenal glands: Unremarkable. Gastrointestinal tract: Significant fecal stasis distending the rectosigmoid colon, with mural thickening in the rectum and s urrounding inflammatory change. Appendix: The appendix is not definitively visualized. However, no pericecal inflammatory change is identified suggest the presence of acute appendicitis. Vasculature: Unremarkable. Lymph nodes: Scattered nonpathologically enlarged lymph nodes within the mesentery and retroperitoneum, a nonspeci fic finding. Pelvic structures: The bladder is minimally distended, and demonstrates thickened quinteros and surrounding inflammatory cayla nge for which cystitis is suspected. The prostate gland is not enlarged. Body wall and musculoskeletal: Small fat-containing umbilical hernia. No significant degenerative disease within the lower thoracic or lumbosacral spine. IMPRESSION: Findings consistent with fecal impaction, to the level of the sigmoid colon, as detailed above. Reviewed, dictated and finalized at location A.
[2024-05-28 13:33] VITALS: BP 131/71; PULSE 86; RESP 20; TEMP 36.4; O2SAT 100
--- NOTE | 2024-05-28 13:37 | ED_ITS ---
HPI - Nausea/Vomiting/Diarrhea General Chief complaint: Nausea/Vomiting/Diarrhea <Kristina Fitzgerald PA-C - Last Filed: 05/31/24 17:39> Stated complaint: VOMITING <Kristina Fitzgerald PA-C - Last Filed: 05/31/24 17:39> Time Seen by Provider: 05/28/24 13:38 <Kristina Fitzgerald PA-C - Last Filed: 05/31/24 17:39> Focused HPI: This is a 34 year old male that presents to the ER for right sided abdominal pain. Reports associated nausea, vomiting. No previous abdominal surgeries. GENERAL: Well-appearing, well-nourished, and in no acute distress. HEAD: Normocephalic, atraumatic. CHEST: Clear to auscultation. ?No respiratory distress. HEART: Regular rate and rhythm.? NEURO: ?Alert and oriented x3. Patient screened in triage and initial orders placed.? ?Additional care and disposition to be based upon?diagnostic testing and treatment. <Kristina Fitzgerald PA-C - Last Filed: 05/31/24 17:39> History of Present Illness HPI Narrative: Agree with HPI. History of fecal impaction requiring clean out. Has been having crampy abdominal pain with some soft stool when he does have bowel movement. <Brodie Grant MD - Last Filed: 05/28/24 20:24> Related Data Home medications: Home Medications ?Medication ?Instructions ?Recorded ?Confirmed ?Last Taken ?Type aripiprazole 2 mg tablet 2 mg PO DAILY 03/16/21 11/23/23 03/16/22 08:00 History benztropine 0.5 mg tablet 0.5 mg PO BID 03/16/21 11/23/23 03/16/22 18:00 History divalproex 500 mg tablet,delayed 500 mg PO BID 03/16/21 11/23/23 03/16/22 20:00 History release ascorbic acid (vitamin C) 500 mg 500 mg PO DAILY 04/18/23 11/23/23 Unknown History capsule,extended release (Vitamin C) divalproex 125 mg tablet,delayed 125 mg PO BID 04/18/23 11/23/23 Unknown History release multivitamin 1 tablet PO DAILY 04/18/23 11/23/23 Unknown History oxcarbazepine 150 mg tablet 150 mg PO DAILY 11/18/23 11/23/23 Unknown History <Kristina Fitzgerald PA-C - Last Filed: 05/31/24 17:39> Allergies/Adverse reactions: Allergies Allergy/AdvReac Type Severity Reaction Status Date / Time No Known Allergies Allergy Verified 05/28/24 18:11 <Kristina Fitzgerald PA-C - Last Filed: 05/31/24 17:39> Review of Systems 2 Review of Systems: All systems reviewed & are unremarkable except as noted in HPI and below <Brodie Grant MD - Last Filed: 05/28/24 20:24> Constitutional: Constitutional: Reports no additional constitutional complaints <Brodie Grant MD - Last Filed: 05/28/24 20:24> ENT: Reports system reviewed and no additional complaints, except as documented <Brodie Grant MD - Last Filed: 05/28/24 20:24> Cardiovascular: Cardiovascular: Reports no additional cardiovascular complaints <Brodie Grant MD - Last Filed: 05/28/24 20:24> Respiratory: Respiratory: Reports no additional respiratory complaints < Brodie Grant MD - Last Filed: 05/28/24 20:24> Gastrointestinal: Gastrointestinal: Reports no additional gastrointestinal complaints <Brodie Grant MD - Last Filed: 05/28/24 20:24> [facility], LAT[facility] Past Medical History Medical History: Medical History Asthma Cerebral palsy Fecal impaction of colon Overweight (BMI 25.0-29.9) Seizure disorder Urinary incontinence <Kristina Fitzgerald PA-C - Last Filed: 05/31/24 17:39> Family History Family History: Family History Father Acute myocardial infarction Mother Asthma Grandparent Breast cancer Sibling Cerebrovascular accident Grandparent Atrial fibrillation <Kristina Fitzgerald PA-C - Last Filed: 05/31/24 17:39> Social History Social History: Social History Smoking status: Never smoker Tobacco type: cigars Second hand tobacco smoke exposure: No Alcohol intake: never Substance use: never Substance use type: does not use Lack of Transportation: No Lack of Food: Never True Current Housing: I Have Housing Concerned About Future Housing: No Difficulty Paying Gas/Electric Bills: No Difficulty Paying for Meds: No Currently Unemployed: No Education: High School Diploma/GED Difficulty w/ Childcare or Family Care: No Living arrangements: with family Occupation/Education: student Gender identity (if verbalized by the patient): Male Sexual Orientation (if Verbalized by the Patient): Straight or Heterosexual Spiritual care concerns: No Agree to blood products: Yes <Kristina Fitzgerald PA-C - Last Filed: 05/31/24 17:39> Exam 2 Narrative: GENERAL: Well-appearing, well-nourished, and in no acute distress. HEAD: Normocephalic, atraumatic. EYES: PERRL Persistent nystagmus ENT: Mucous membranes moist. CHEST: Clear to auscultation. No respiratory distress. HEART: Regular rate and rhythm. Normal peripheral pulses. ABDOMEN: Soft, nontender, nondistended. NEURO: Alert and oriented x3. At neurologic baseline. PSYCH: Normal mood and affect. <Brodie Grant MD - Last Filed: 05/28/24 20:24> Course Course Emergency Course: Patient tolerated enema and had a large bowel movement. Appropriate for discharge home. Will continue his MiraLax usage. <Brodie rGant MD - Last Filed: 05/28/24 20:24> Vital Signs Vital signs: Vital Signs Temperature 97.6 F 05/28/24 13:33 Pulse Rate 86 05/28/24 13:33 Respiratory Rate 20 05/28/24 13:33 Blood Pressure 131/71 05/28/24 13:33 Pulse Oximetry 100 05/28/24 13:33 Oxygen Delivery Room Air 05/28/24 13:33 Temperature 97.6 F 05/28/24 13:33 Pulse Rate 73 05/28/24 20:46 Respiratory Rate 17 05/28/24 20:46 Blood Pressure 130/79 05/28/24 20:46 Pulse Oximetry 100 05/28/24 20:46 Oxygen Delivery Room Air 05/28/24 13:33 <Kristina Fitzgerald PA-C - Last Filed: 05/31/24 17:39> Vital Signs Temperature 97.6 F 05/28/24 13:33 Pulse Rate 86 05/28/24 13:33 Respiratory Rate 20 05/28/24 13:33 Blood Pressure 131/71 05/28/24 13:33 Pulse Oximetry 100 05/28/24 13:33 Oxygen Delivery Room Air 05/28/24 13:33 Temperature 97.6 F 05/28/24 13:33 Pulse Rate 73 05/28/24 20:46 Respiratory Rate 17 05/28/24 20:46 Blood Pressure 130/79 05/28/24 20:46 Pulse Oximetry 100 05/28/24 20:46 Oxygen Delivery Room Air 05/28/24 13:33 <Brodie Grant MD - Last Filed: 05/28/24 20:24> MDM - Nausea/Vomiting/Diarrhea Lab Data Result diagrams: 05/28/24 14:12 05/28/24 14:12 <Kristina Fitzgerald PA-C - Last Filed: 05/31/24 17:39> Labs: Lab Results 05/28/24 05/28/24 Range/Units 14:12 14:27 WBC 6.4 (4.5-10.0) K/mm3 RBC 5.47 (4.6-6.20) M/mm3 Hgb 16.8 (14.0-18.0) g/dL Hct 49.0 (42.0-52.0) % MCV 89.6 (80-100) fl MCH 30.7 (26-34) pg MCHC 34.3 (32-36) g/dl RDW 12.9 (11.5-14.5) % Plt Count 187 (150-375) k/mm3 MPV 9.5 (7.4-10.4) fl Immature Gran % (Auto) 1.4 H (0-0.5) % Neut % (Auto) 56.7 (45.5-73.1) % Lymph % (Auto) 29.8 (18.3-44.2) % Sab[place] % (Auto) 8.6 H (2.6-8.5) % Eos % (Auto) 3.0 (0-4.4) % Baso % (Auto) 0.5 (0.2-1.2) % Lymph # (Auto) 1.91 (0.9-3.2) K/mm3 [place] # (Auto) 0.6 (0.1-0.6) K/mm3 Eos # (Auto) 0.2 (0-0.3) K/mm3 Baso # (Auto) 0.0 (0.0-0.1) K/mm3 Abs Immat Gran (auto) 0.09 H (0.00-0.031) K/mm3 Absolute Neuts (auto) 3.6 (1.3-6.7) K/mm3 Absolute Nucleated RBC 0.000 (0.0-0.012) K/mm3 Nucleated RBC % 0.0 (0.0-0.2) % Sodium 136 L (137-145) mmol/L Potassium 4.4 (3.4-5.0) mmol/L Chloride 101 (98-107) mmol/L Carbon Dioxide 23 (22-30) mmol/L Anion Gap 12 (4-12) mmol/L BUN 9 (9-20) mg/dL Creatinine 0.54 L (0.7-1.3) mg/dL Estim Creat Clear Calc 162 ml/min Estimated GFR > 60 (59 - ) Glucose 101 (65-110) mg/dL Calcium 9.6 (8.4-10.2) mg/dL Total Bilirubin 0.5 (0.2-1.3) mg/dL AST 47 (17-59) U/L ALT 61 H (6-50) U/L Alkaline Phosphatase 48 (38-126) U/L Total Protein 8.0 (6.3-8.2) g/dL Albumin 4.4 (3.5-5.1) g/dL Lipase 77 (23-300) U/L Urine Color Yellow (Yellow) Urine Appearance Clear (Clear) Urine pH 7.5 (5.0-9.0) Ur Specific [place] 1.018 (1.001-1.035) Urine Protein Negative (Negative) mg/dL Urine Glucose (UA) Negative (Negative) mg/dL Urine Ketones Trace H (Negative) mg/dL Ur Blood (Man) Negative (Negative) Urine Nitrate Negative (Negative) Urine Bilirubin Negative (Negative) Urine Urobilinogen 0.2 (<2.0) mg/dL Leukocyte Esterase Rfl Negative (Negative) FERMIN/UL <Kristina L. Fitzgerald, PA-C - Last Filed: 05/31/24 17:39> Lab Results 05/28/24 05/28/24 Range/Units 14:12 14:27 WBC 6.4 (4.5-10.0) K/mm3 RBC 5.47 (4.6-6.20) M/mm3 Hgb 16.8 (14.0-18.0) g/dL Hct 49.0 (42.0-52.0) % MCV 89.6 (80-100) fl MCH 30.7 (26-34) pg MCHC 34.3 (32-36) g/dl RDW 12.9 (11.5-14.5) % Plt Count 187 (150-375) k/mm3 MPV 9.5 (7.4-10.4) fl Immature Gran % (Auto) 1.4 H (0-0.5) % Neut % (Auto) 56.7 (45.5-73.1) % Lymph % (Auto) 29.8 (18.3-44.2) % Sab[place] % (Auto) 8.6 H (2.6-8.5) % Eos % (Auto) 3.0 (0-4.4) % Baso % (Auto) 0.5 (0.2-1.2) % Lymph # (Auto) 1.91 (0.9-3.2) K/mm3 [place] # (Auto) 0.6 (0.1-0.6) K/mm3 Eos # (Auto) 0.2 (0-0.3) K/mm3 Baso # (Auto) 0.0 (0.0-0.1) K/mm3 Abs Immat Gran (auto) 0.09 H (0.00-0.031) K/mm3 Absolute Neuts (auto) 3.6 (1.3-6.7) K/mm3 Absolute Nucleated RBC 0.000 (0.0-0.012) K/mm3 Nucleated RBC % 0.0 (0.0-0.2) % Sodium 136 L (137-145) mmol/L Potassium 4.4 (3.4-5.0) mmol/L Chloride 101 (98-107) mmol/L Carbon Dioxide 23 (22-30) mmol/L Anion Gap 12 (4-12) mmol/L BUN 9 (9-20) mg/dL Creatinine 0.54 L (0.7-1.3) mg/dL Estim Creat Clear Calc 162 ml/min Estimated GFR > 60 (59 - ) Glucose 101 (65-110) mg/dL Calcium 9.6 (8.4-10.2) mg/dL Total Bilirubin 0.5 (0.2-1.3) mg/dL AST 47 (17-59) U/L ALT 61 H (6-50) U/L Alkaline Phosphatase 48 (38-126) U/L Total Protein 8.0 (6.3-8.2) g/dL Albumin 4.4 (3.5-5.1) g/dL Lipase 77 (23-300) U/L Urine Color Yellow (Yellow) Urine Appearance Clear (Clear) Urine pH 7.5 (5.0-9.0) Ur Specific [place] 1.018 (1.001-1.035) Urine Protein Negative (Negative) mg/dL Urine Glucose (UA) Negative (Negative) mg/dL Urine Ketones Trace H (Negative) mg/dL Ur Blood (Man) Negative (Negative) Urine Nitrate Negative (Negative) Urine Bilirubin Negative (Negative) Urine Urobilinogen 0.2 (<2.0) mg/dL Leukocyte Esterase Rfl Negative (Negative) FERMIN/UL <Brodie Grant MD - Last Filed: 05/28/24 20:24> Imaging Data Radiologist's impression: ITS Impressions Abdomen/Pelvis CT 05/28/24 18:27 IMPRESSION: Findings consistent with fecal impaction, to the level of the sigmoid colon, as detailed above. <Brodie Grant MD - Last Filed: 05/28/24 20:24> Critical Care Time Critical Care Time Critical Care Time: No <Kristina Fitzgerald PA-C - Last Filed: 05/31/24 17:39> Discharge Plan Discharge Clinical Impression: Fecal impaction <Kristina Fitzgerald PA-C - Last Filed: 05/31/24 17:39> Patient Disposition: Home <Kristina Fitzgerald PA-C - Last Filed: 05/31/24 17:39> Condition: Stable <Kristina Fitzgerald PA-C - Last Filed: 05/31/24 17:39> Instructions: Fecal Impaction (ED) <Kristina Fitzgerald PA-C - Last Filed: 05/31/24 17:39> Additional Instructions: Return to the emergency department if you develop severe abdominal pain, severe nausea and vomiting to the point where you are unable to keep down fluids, if you develop chest pain or difficulty breathing, blood in your stool, dizziness or fainting, or if you develop any other new or concerning symptoms as these could be signs of more serious medical illness. Try to stay well hydrated. Continue to take daily MiraLax to help with bowel movements. He may increase it to twice a day over the next 3-5 days to ensure adequate passage of stool. <Kristina Fitzgerald PA-C - Last Filed: 05/31/24 17:39> Patient Language: Turkmen <Kristina Fitzgerald PA-C - Last Filed: 05/31/24 17:39> Prescriptions: No Action oxcarbazepine 150 mg tablet 150 mg PO DAILY aripiprazole 2 mg tablet 2 mg PO DAILY benztropine 0.5 mg tablet 0.5 mg PO BID divalproex 500 mg tablet,delayed release (DR/EC) 500 mg PO BID divalproex 125 mg tablet,delayed release (DR/EC) 125 mg PO BID multivitamin Tablet 1 tablet PO DAILY ascorbic acid (vitamin C) [Vitamin C] 500 mg capsule, extended release 500 mg PO DAILY triamcinolone acetonide 0.1 % cream 1 applic topical BID Qty: 30 0RF polyethylene glycol 3350 [ClearLax] 17 gram powder in packet 17 g PO DAILY Qty: 30 0RF albuterol sulfate 90 mcg/actuation HFA aerosol inhaler See Rx Instructions .ROUTE .COMPLEX Qty: 8.5 3RF Dose Instruction: INHALE 2 PUFFS BY MOUTH EVERY 4 HOURS NEEDED FOR SHORTNESS OF BREATH OR WHEEZING Rx Instructions: INHALE 2 PUFFS BY MOUTH EVERY 4 HOURS NEEDED FOR SHORTNESS OF BREATH OR WHEEZING <Kristina Fitzgerald PA-C - Last Filed: 05/31/24 17:39> Follow-up/Referrals: Jerry Cain MD [Primary Care Provider] - 1 Week <Kristina Fitzgerald PA-C - Last Filed: 05/31/24 17:39>
[2024-05-28 14:24] LABS: Basophils Percent Auto 0.5 % (0.2-1.2); Eosinophils Absolute Auto 0.2 K/mm3 (0-0.3); Hemoglobin 16.8 g/dL (14.0-18.0); Immature Granulocyte Absolute 0.09 K/mm3 (0.00-0.031); Immature Granulocyte Percent A 1.4 % (0-0.5); Lymphocytes Absolute Auto 1.91 K/mm3 (0.9-3.2); Lymphocytes Percent Auto 29.8 % (18.3-44.2); Mean Corpuscular HGB Conc 34.3 g/dl (32-36); Mean Corpuscular Hemoglobin 30.7 pg (26-34); Mean Corpuscular Volume 89.6 fl (80-100); Mean Platelet Volume 9.5 fl (7.4-10.4); Monocytes Absolute Auto 0.6 K/mm3 (0.1-0.6); Monocytes Percent Auto 8.6 % (2.6-8.5); Neutrophils Absolute Auto 3.6 K/mm3 (1.3-6.7); Neutrophils Percent Auto 56.7 % (45.5-73.1); Platelet Count Result 187 k/mm3 (150-375); Red Blood Count 5.47 M/mm3 (4.6-6.20); Red Cell Distribution Width 12.9 % (11.5-14.5); White Blood Count 6.4 K/mm3 (4.5-10.0)
[2024-05-28 14:38] LABS: Add Urine Microscopic? NO; Appearance Urine Clear (Clear); Bilirubin Urine Negative (Negative); Blood Urine Negative (Negative); Color Urine Yellow (Yellow); Glucose Urine UA Negative (Negative); Ketones Urine Trace mg/dL (Negative); Leukocyte Esterase Ur Negative LEU/UL (Negative); Nitrate Urine Negative (Negative); Protein Urine Negative (Negative); Specific Grav Ur 1.018 (1.001-1.035); Urobilinogen Urine 0.2 mg/dL (<2.0); pH Urine 7.5 (5.0-9.0)
[2024-05-28 14:39] LABS: Alanine Aminotransferase 61 U/L (6-50); Albumin Level 4.4 g/dL (3.5-5.1); Alkaline Phosphatase 48 U/L (38-126); Anion Gap 12 mmol/L (4-12); Aspartate Amino Transferase 47 U/L (17-59); Bilirubin,Total 0.5 mg/dL (0.2-1.3); Blood Urea Nitrogen 9 mg/dL (9-20); Calcium 9.6 mg/dL (8.4-10.2); Carbon Dioxide 23 mmol/L (22-30); Chloride 101 mmol/L (98-107); Estimated CRCL calculation 162 ml/min; Estimated Glomerular Filt Rate > 60; Glucose 101 mg/dL (65-110); Lipase 77 U/L (23-300); Potassium 4.4 mmol/L (3.4-5.0); Sodium 136 mmol/L (137-145)
--- OUTSIDE RECORDS SUMMARY | 2024-05-28 14:50 | XMS_ITS | Encounter Summary ---
Author Organization [facility] Health Address [address] [place] [address] Care Team Providers Care Dressing Room Porter Name Role Phone Jerry Cain MD Primary Care Provider + Reason for Visit * Reason Onset Date Comments Concerns 04/01/2024 Encounter Details Date Type Department Care Team (Late st Contact Info) Description 04/01/2024 Telephone [facility] - Centralized Scheduling [address] [place] [address] Rivka Baumann APRN-PIPE FITTER [employer] P[employer] [address] [place] [address] Concerns Social History Tobacco Use Types Packs/Day Years Used Date Smoking Tobacco: Never Smokeless Tobacco: Never Alcohol Use Standard Drinks/Week Comments No 0 (1 standard drink = 0.6 oz pur e alcohol) Sex and Gender Information Value Date Recorded Sex Assigned at Not on file Gender Identity Not on file Sexual Orientation Not on file documented as of this encounter Miscellaneous Notes * Telephone Encounter - Sancho Ponce - 04/01/2024 3:45 PM CST Patient's mother called to inform IZABELA Baumann that she is unable to transport Moe to his appointment at 1pm on 04/12. She would either prefer that he still be seen on 04/03 or reschedule for a soonerdate than October in the morning. 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
--- OUTSIDE RECORDS SUMMARY | 2024-05-28 14:50 | XMS_ITS | Clinical Summary ---
Author Organization [facility] Address [address] [place] [address] Care Team Providers Care Scanner Operator Name Role Phone Jerry Cain MD Primary Care Provider + Source Comments [facility],non-owned Affiliates and Associated Physician Practices is amultiple site organization consisting of ambulatory clinics and hospital sitesin [place], [place], [place] and [place]. This disclosure is being madepursuant to the Care Everywhere program and may not contain all information available regarding this patient. Last updated 17.[facility] [employer] Allergies No known active allergies Medications * Be aware that medications may not be up to date on this document. Alwaysverify current medications with the patient. 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, not intractable, without status epilepticus (HCC) Take 1 (one) tablet by mouth 2 times daily With 500 mg order for a total dose of divalproex of 625 mg twice daily 180 tablet 3 04/12/[address] (Depakote) 500 MG tabletIndications: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, not intractable, without status epilepticus (HCC) Take 1 (one) tablet by mouth 2 times daily With 125 mg order for a total dose of divalproex of 625 mg twice daily 180 tablet 3 04/12/2024 Active Active Problems Problem Noted Date Diagnosed Date Epilepsy 07/19/2018 Chronic constipation 06/25/2015 Complex partial seizures with consciousness impa ired 11/15/2014 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 Encounters Date Type Department Care Team Description 04/22/2024 Telephone [facility] - Neurology [address] [place] [phone] Rivka Baumann APRN-CNP Medication Management 04/12/2024 10:30 AM [employer] MAINFRAME DEVELOPER Office Visit [facility] - Neurology [address] [place] [phone] Rivka Baumann APRN-CNP Partial symptomatic epilepsy with complex partial seizures, not intractable, without status epilepticus (Primary Dx) 04/12/2024 Travel 04/01/2024 Telephone [facility] - Centralized Scheduling [facility] [place] [address] Rivka Baumann APRN-CNP Concerns from Last 3 Months Immunizations Name Administration Dates Next Due DTP 08/02/1994, 2,1990,1990,04/16/18 91 HEP B VACCINE, PED/ADOL 11/01/2000,01/29/1998, MMR 08/02/1994,05/07/1991 POLIO OPV 11/28/1994, 2,1990,1990,04/16/18 91 Family History Medical History Relation Name Comments Stroke Brother Migraine Mother Migraine Sister Relation Name Status Comments Brother Mother Sister Social History Tobacco Use Types Packs/Day Years Used Date Smoking Tobacco: Never Smokeless Tobacco: Never Tobacco Cessation:Counseling Given: Not Answered Alcohol Use Standard Drinks/Week Comments No 0 (1 standard drink = 0.6 oz pur e alcohol) Sex and Gender Information Value Date Recorded Sex Assigned at Not on file Gender Identity Not on file Sexual Orientation Not on file Last Filed Vital Signs Vital Sign Reading Time Taken Comments Blood Pressure 135/83 04/12/2024 10:14 AM [employer] MAINFRAME DEVELOPER Pulse 70 04/12/2024 10:14 AM [employer] MAINFRAME DEVELOPER Temperature 37.1 C (98.8 F) 08/08/2023 7:39 AM CDT Respiratory Rate 18 11/13/2020 11:05 AM CDT Oxygen Saturation 99% 08/08/2023 7:39 AM CDT Inhaled Oxygen Concentration - - Weight 82.6 kg (182 lb) 04/12/2024 10:14 AM [employer] MAINFRAME DEVELOPER Height 175.3 cm (5' 9 ) 02/09/2022 7:59 AM [employer] MAINFRAME DEVELOPER Body Mass Index 26.88 02/09/2022 7:59 AM [employer] MAINFRAME DEVELOPER Plan of Treatment Upcoming Encounters Date Type Department Care Team (Late st Contact Info) Description 10/03/2024 9:00 AM CDT Office Visit [facility] - Neurology [address] [place] [address] Rivka Baumann, PRINTER FLOOR COVERING ASSISTANT-[facility] [address] [place] [phone] Health Maintenance Due Date Last Done Comments DTAP/TDAP/TD VACCINES (6 - Tdap) 2001 08/02/1994, 09/10/1991, 1990, Additional history exists HIV SCREENING 2005 HEPATITIS C SCREENING 01/28/2008 COVID-19 VACCINE ( season) 2023 DEPRESSION SCREENING 02/21/2024 INFLUENZA VACCINE (Season Ended) 2024 ZOSTER VACCINE (1 of 2) 02/02/2040 HEPATITIS B VACCINE Completed 11/01/2000, 01/29/1998, 11/28/1994 HIB VACCINE Aged Out No longer eligi ble based on patient's age to complete this topic HPV VACCINE Aged Out No longer eligi ble based on patient's age to complete this topic MENINGOCOCCAL (Group B) VACCINE SHARED DECISION-MAKING Aged Out No longer eligible based on patient's age to complete this topic MENINGOCOCCAL GROUPS A/C/Y/W VACCINE Aged Out No longer eligible based on patient's age to complete this topic PNEUMOCOCCAL VACCINE Aged Out No long er eligible based on patient's age to complete this topic Procedures Procedure Name Priority Date/Time Associated Diagnosis Comments LAB RESULTS ORDER 04/16/2024 LAB RESULTS ORDER 04/16/2024 from Last 3 Months Results * LAB RESULTS ORDER (04/16/2024) Only the most recent of2 resultswithin the time period is included. 04/16/2024 Narrative 04/16/2024 Ordered by an unspecified provider. Scanned Document LAB - THERAPEUTIC DR GREER MONITORING ORDERABLES from Last 3 Months Additional Health Concerns Infection Onset Date Last Indicated MRSA 11/09/2007 11/09/2007 Care Teams Scanner Operator Relationship Specialty Start Date End Date Jerry Cain MD [address] [facility] [address] [place] [address] PCP - General 06/30/17
--- OUTSIDE RECORDS SUMMARY | 2024-05-28 14:50 | XMS_ITS | Clinical Summary ---
Author Organization [facility] Address [address] [place] [address] Phone Care Team Providers Care Personal Counselor Name Role Phone Jerry Cain MD Primary Care Provider + Bryce Cantrell DO Unavailable [phone] Allergies No known active allergies Medications divalproex (DEPAKOTE) 500 MG Tablet Delayed Response Take 500 mg by mouth 2 times daily. Active risperiDONE (RISPERDAL) 1 MG Tablet Take 1 mg by mouth 2 times daily. Active polyethylene glycol (MIRALAX) Powder Take 17 g by mouth 5 times daily as needed for up to 30 days. 17 g = 1 scoop. Dissolve in 4 -8 oz of water or other liquid. 4 Bottle 12 6 Active benztropine (COGENTIN) 0.5 MG Tablet Take 0.5 mg by mouth 2 times daily. Active docusate sodium (COLACE) 100 MG Capsule Take 1 Cap by mouth 2 times daily. 180 Cap 3 6 Active Additional Information Patient not taking.Reported on 07/21/2016 Active Problems Problem Noted Date Diagnosed Date Chronic constipation 06/25/2015 CP (cerebral palsy) 06/25/2015 Family History Medical History Relation Name Comments Stroke Brother Heart Attack Father Relation Name Status Comments Brother Father Alive Mother Alive Social History Tobacco Use Types Packs/Day Years Used Date Smoking Tobacco: Never Alcohol Use Standard Drinks/Week Comments No 0 (1 standard drink = 0.6 oz pur e alcohol) Sex and Gender Information Value Date Recorded Sex Assigned at Not on file Legal Sex Male 9:27 PM CDT Gender Identity Not on file Sexual Orientation Not on file Occupation Industry Job Start Date Job End Date disabled Not on file Not on file Not on file Last Filed Vital Signs Vital Sign Reading Time Taken Comments Blood Pressure 126/82 07/21/2016 3:08 PM CDT Pulse 110 07/21/2016 3:08 PM CDT Temperature 36.8 C (98.3 F) 07/21/2016 3:08 PM CDT Respiratory Rate 16 07/21/2016 3:08 PM CDT Oxygen Saturation 92% 07/21/2016 3:08 PM CDT Inhaled Oxygen Concentration - - Weight 86.2 kg (190 lb) 07/21/2016 3:08 PM CDT Height 172.7 cm (5' 8 ) 07/21/2016 3:08 PM CDT Body Mass Index 28.89 07/21/2016 3:08 PM CDT Plan of Treatment Health Maintenance Due Date Last Done Comments Hepatitis C Virus (HCV) Screening 1990 TdaP Immunization 1990 Hepatitis B Immunization (1 of 3 - 19+ 3-dose series) 2009 Influenza Immunization (#1) 2023 SARS-COV-2 Immunization ( - 2023-25 season) 2023 Respiratory Syncytial Virus (RSV) Immunization (Adult) (1 - 1-dose 75+ series) 2065 Meningococcal Immunization (ACWY) Aged Out No longer eligible based on patient's age to complete this topic Pneumococcal Immunization Combined Aged Out No longer eligible based on patient's age to complete this topic Rotavirus Immunization Aged Out No lo nger eligible based on patient's age to complete this topic Insurance MEDICAID [employer] Care Teams Personal Counselor Relationship Specialty Start Date End Date Jerry Cain MD [address] [place] [address] PCP - General Family Medicine 03/02/15 Bryce Cantrell DO [address] [place] [address] Gastroenterology 06/25/15
--- OUTSIDE RECORDS SUMMARY | 2024-05-28 15:11 | XMS_ITS | Encounter Summary ---
Author Organization [facility] Health Address [address] [facility] [address] Care Team Providers Care Rn Ed Name Role Phone Jerry Cain MD Primary Care Provider + Reason for Visit * Reason Onset Date Comments Concerns 04/01/2024 Encounter Details Date Type Department Care Team (Late st Contact Info) Description 04/01/2024 Telephone [facility] - Centralized Scheduling [address] [place] [address] Rivka Baumann APRN-CHAMBER WALKER [address] [place] [address] Concerns Social History Tobacco Use [...] a soonerdate than October in the morning. 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
--- OUTSIDE RECORDS SUMMARY | 2024-05-28 15:11 | XMS_ITS | Clinical Summary ---
Author Organization [facility] Address [address] [place] [address] Phone Care Team Providers Care Library Manager Name Role Phone Jerry Cain MD Primary Care Provider + Bryce Cantrell DO Unavailable [phone] Allergies No known active allergies Medications [...] age to complete this topic Insurance MEDICAID [facility] [employer] Care Teams Library Manager Relationship Specialty Start Date End Date Jerry Cain MD [address] [place] [address] PCP - General Family Medicine 03/02/15 Bryce Cantrell DO [address] [place] [address] Gastroenterology 06/25/15
--- OUTSIDE RECORDS SUMMARY | 2024-05-28 15:11 | XMS_ITS | Clinical Summary ---
Author Organization [facility] Address [address] [facility] [place] [address] Care Team Providers Care Street Supervisor Name Role Phone Jerry Cain MD Primary Care Provider + Source Comments [facility],non-owned Affiliates and Associated Physician Practices is amultiple site organization consisting of ambulatory clinics and hospital sitesin [place], [place], [place] and [place]. This disclosure is being madepursuant to the Care Everywhere program and may not contain all information available regarding this patient. Last updated 17.[facility] [employer] Allergies No known active allergies Medications * [...] 04/22/2024 Telephone [facility] - Neurology [address] [place] [phone] Rivka Baumann APRN-CNP Medication Management 04/12/2024 10:30 AM PLATE MILL HAND Office Visit [facility] - Neurology [address] [place] [phone] Rivka Baumann APRN-CNP Partial symptomatic epilepsy with complex partial seizures, not intractable, without status epilepticus (Primary Dx) 04/12/2024 Travel 04/01/2024 Telephone [facility] - Centralized Scheduling [facility] [place] [address] Rivka Baumann APRN-CNP Concerns from Last 3 [...] Comments Blood Pressure 135/83 04/12/2024 10:14 AM PLATE MILL HAND Pulse 70 04/12/2024 10:14 AM PLATE MILL HAND Temperature 37.1 C (98.8 F) 08/08/2023 7:39 AM CDT Respiratory Rate 18 11/13/2020 11:05 AM CDT Oxygen Saturation 99% 08/08/2023 7:39 AM CDT Inhaled Oxygen Concentration - - Weight 82.6 kg (182 lb) 04/12/2024 10:14 AM PLATE MILL HAND Height 175.3 cm (5' 9 ) 02/09/2022 7:59 AM PLATE MILL HAND Body Mass Index 26.88 02/09/2022 7:59 AM PLATE MILL HAND Plan of Treatment Upcoming Encounters Date Type Department Care Team (Late st Contact Info) Description 10/03/2024 9:00 AM CDT Office Visit [facility] - Neurology [address] [place] [address] Rivka Baumann, MEAT AND SEAFOOD CLERK-[facility] [address] [place] [phone] Health Maintenance Due Date Last Done Comments [...] Last Indicated MRSA 11/09/2007 11/09/[address] Supervisor Relationship Specialty Start Date End Date Jerry Cain MD [address] [facility] 100 [place] [address] PCP - General 06/30/17
[2024-05-28 18:09] VITALS: BP 125/81; PULSE 80; RESP 18; O2SAT 100
[2024-05-28] MEDS: ONDANSETRON INJ 4 MG/2 ML VIAL IV PUSH (18:32)
[2024-05-28] MEDS: LORazepam INJ (*CRX) 2 MG/ML VIAL 0.5 MG IV PUSH (18:57)
[2024-05-28 19:14] VITALS: BP 128/84; PULSE 68; RESP 15; O2SAT 98
[2024-05-28 20:45] VITALS: BP 130/79; PULSE 73; RESP 17; O2SAT 100
[2024-05-28 20:46] VITALS: BP 130/79; PULSE 73; RESP 17; O2SAT 100
== END 2024-05-28 20:49 | disposition home or self-care (01) ==
PROVIDERS: Physician Assistant; Emergency Provider Emergency Medicine; PCP Family Medicine Adolescent Medicine
DX: K56.41 Fecal impaction (principal); J45.909 Unspecified asthma, uncomplicated; G80.9 Cerebral palsy, unspecified; G40.909 Epilepsy, unspecified, not intractable, without status epilepticus
CPT/HCPCS: 36415; 74177; 80053; 81003; 83690; 85025; 96374; 96375; 99284; J2060; J2405; Q9967

== ENCOUNTER 2024-06-26 19:20 | Emergency (ER) | payer OTHER, SELFPAY ==
--- OUTSIDE RECORDS SUMMARY | 2024-06-26 19:22 | XMS_ITS | Clinical Summary ---
Author Organization [facility] Address [address] [place] [address] Phone Care Team Providers Care Brake Liner Name Role Phone Jerry Cain MD Primary Care Provider + Bryce Cantrell DO Unavailable [phone] Allergies No known active allergies Medications divalproex [...] age to complete this topic Insurance MEDICAID [facility] [employer] Care Teams Brake Liner Relationship Specialty Start Date End Date Jerry Cain MD [address] [place] [address] PCP - General Family Medicine 03/02/15 Bryce Cantrell DO [address] [place] [address] Gastroenterology 06/25/15
--- OUTSIDE RECORDS SUMMARY | 2024-06-26 19:22 | XMS_ITS | Encounter Summary ---
Author Organization [facility] Health Address [address] [facility] [place] [address] Care Team Providers Care Powerhouse Electrician Name Role Phone Jerry Cain MD Primary Care Provider + Reason for Visit * Reason Onset Date Comments Concerns 04/01/2024 Encounter Details Date Type Department Care Team (Late st Contact Info) Description 04/01/2024 Telephone [facility] - Centralized Scheduling [address] [place] [phone] Rivka Baumann APRN-NETWORK AND THREAT SUPPORT SPECIALIST [address] [place] [address] Concerns Social History Tobacco Use Types Packs/Day Years Used Date Smoking Tobacco: Never Smokeless Tobacco: Never Alcohol Use Standard Drinks/Week Comments No 0 (1 standard drink = 0.6 oz pur e alcohol) Sex and Gender Information Value Date Recorded Sex Assigned at Not on file Legal Sex Male 5:37 AM WORKFORCE MANAGEMENT ANALYST Gender Identity Not on file Sexual Orientation [...] a soonerdate than October in the morning. 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
--- OUTSIDE RECORDS SUMMARY | 2024-06-26 19:22 | XMS_ITS | Clinical Summary ---
Author Organization [facility] Address [address] [facility] [place] [address] Care Team Providers Care Bricklayer Apprentice Name Role Phone Jerry Cain MD Primary Care Provider + Source Comments [facility],non-owned Affiliates and Associated Physician Practices is amultiple site organization consisting of ambulatory clinics and hospital sitesin [place], [place], [place] and [place]. This disclosure is being madepursuant to the Care Everywhere program and may not contain all information available regarding this patient. Last updated 17.[facility] [employer] Allergies No known active allergies Medications * Be aware that medications may not be up to date on this document. Alwaysverify current medications with the patient. albuterol HFA (PROVENTIL;JEFF PATSY;PROAIR) 108 (90 Base) MCG/ACT inhaler 9 Active ARIPiprazole (ABILIFY) 2 MG tablet 1 (one) tablet once daily 9 Active benztropine (COGENTIN) 0.5 MG tablet Take 1 (one) tablet by mouth 2 times daily Active cloBAZam (Onfi) 10 MG tabletIndication s:Partial symptomatic epilepsy with complex partial seizures, not intractable, without status epilepticus (HCC) Take 0.5 (one-half) tablet by mouth at bedtime 15 tablet [address] (Depakote) 125 MG tabletIndication s:Partial symptomatic epilepsy with complex partial seizures, not intractable, without status epilepticus (HCC) Take 1 (one) tablet by mouth 2 times daily With 500 mg order for a total dose of divalproex of 625 mg twice daily 180 tablet [address] (Depakote) 500 MG tabletIndication s:Partial symptomatic epilepsy with complex partial seizures, not intractable, without status epilepticus (HCC) Take 1 (one) tablet by mouth 2 times daily With 125 mg order for a total dose of divalproex of 625 mg twice daily 180 tablet 3 5 Active Active Problems Problem Noted Date Diagnosed Date Epilepsy 07/19/2018 Chronic constipation 06/25/2015 Complex partial seizures with consciousness impa ired 11/15/2014 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 Encounters Date Type Department Care Team Description 04/22/2024 Telephone [facility] - Neurology [address] [place] [phone] Rivka Baumann APRN-CNP Medication Management 04/12/2024 10:30 AM DIRECTOR OF ALUMNI RELATIONS Office Visit [facility] - Neurology [address] [place] [phone] Rivka Baumann APRN-CNP Partial symptomatic epilepsy with complex partial seizures, not intractable, without status epilepticus (Primary Dx) 04/12/2024 Travel 04/01/2024 Telephone [facility] - Centralized Scheduling [facility] [place] [address] Rivka Baumann APRN-CNP Concerns from Last 3 Months Immunizations Immunization Administration Dates Next Due DTP 08/02/1994, 2,1990,1990,04/16/18 [...] on file Legal Sex Male 5:37 AM DIRECTOR OF ALUMNI RELATIONS Gender Identity Not on file Sexual Orientation Not on file Last Filed Vital Signs Vital Sign Reading Time Taken Comments Blood Pressure 135/83 04/12/2024 10:14 AM DIRECTOR OF ALUMNI RELATIONS Pulse 70 04/12/2024 10:14 AM DIRECTOR OF ALUMNI RELATIONS Temperature 37.1 C (98.8 F) 08/08/2023 7:39 AM CDT Respiratory Rate 18 11/13/2020 11:05 AM CDT Oxygen Saturation 99% 08/08/2023 7:39 AM CDT Inhaled Oxygen Concentration - - Weight 82.6 kg (182 lb) 04/12/2024 10:14 AM DIRECTOR OF ALUMNI RELATIONS Height 175.3 cm (5' 9 ) 02/09/2022 7:59 AM DIRECTOR OF ALUMNI RELATIONS Body Mass Index 26.88 02/09/2022 7:59 AM DIRECTOR OF ALUMNI RELATIONS Plan of Treatment Upcoming Encounters Date Type Department Care Team (Late st Contact Info) Description 10/03/2024 9:00 AM CDT Office Visit [facility] - Neurology [address] [place] [phone] Rivka Baumann, [facility] [address] [place] [address] Health Maintenance Due Date Last Done Comments [...] Narrative 04/16/2024 Ordered by an unspecified provider. 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
[2024-06-26 19:30] VITALS: PULSE 74; RESP 20; TEMP 36.8; O2SAT 95
--- NOTE | 2024-06-26 21:15 | PC.NURSE ---
Patient improved per mother so going to take him home and follow up with PMD tomorrow if needed. Encouraged to return if pain returns
--- OUTSIDE RECORDS SUMMARY | 2024-06-26 21:21 | XMS_ITS | Encounter Summary ---
Author Organization [facility] Health Address [address] [facility] [place] [address] Care Team Providers Care Employee Wellness/Fitness Coordinator Name Role Phone Jerry Cain MD Primary Care Provider + Reason for Visit * Reason Onset Date Comments Concerns 04/01/2024 Encounter Details Date Type Department Care Team (Late st Contact Info) Description 04/01/2024 Telephone [facility] - Centralized Scheduling [address] [place] [phone] Rivka Baumann APRN-DIPPER CLOCK AND WATCH HANDS [address] [place] [address] Concerns Social History Tobacco Use Types Packs/Day Years Used Date Smoking Tobacco: Never Smokeless Tobacco: Never Alcohol Use Standard Drinks/Week Comments No 0 (1 standard drink = 0.6 oz pur e alcohol) Sex and Gender Information Value Date Recorded Sex Assigned at Not on file Legal Sex Male 5:37 AM GUNCOTTON PACKER Gender Identity Not on file Sexual Orientation [...] a soonerdate than October in the morning. 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
--- OUTSIDE RECORDS SUMMARY | 2024-06-26 21:21 | XMS_ITS | Clinical Summary ---
Author Organization [facility] Address [address] [place] [address] Phone Care Team Providers Care Sugarcane Planter Name Role Phone Jerry Cain MD Primary Care Provider + Bryce Cantrell DO Unavailable [phone] Allergies No known active allergies Medications [...] age to complete this topic Insurance MEDICAID [facility] [employer] Care Teams Sugarcane Planter Relationship Specialty Start Date End Date Jerry Cain MD [address] [place] [address] PCP - General Family Medicine 03/02/15 Bryce Cantrell DO [address] [place] [address] Gastroenterology 06/25/15
--- OUTSIDE RECORDS SUMMARY | 2024-06-26 21:21 | XMS_ITS | Clinical Summary ---
Author Organization [facility] Address [address] [facility] [place] [address] Care Team Providers Care Weld Inspector Name Role Phone Jerry Cain MD Primary Care Provider + Source Comments [facility],non-owned Affiliates and Associated Physician Practices is amultiple site organization consisting of ambulatory clinics and hospital sitesin [place], [place], [place] and [place]. This disclosure is being madepursuant to the Care Everywhere program and may not contain all information available regarding this patient. Last updated 17.[facility] [employer] Allergies No known active allergies Medications * [...] 04/22/2024 Telephone [facility] - Neurology [address] [place] [phone] Rivka Baumann APRN-CNP Medication Management 04/12/2024 10:30 AM EDGING MACHINE OPERATOR Office Visit [facility] - Neurology [address] [place] [phone] Rivka Baumann APRN-CNP Partial symptomatic epilepsy with complex partial seizures, not intractable, without status epilepticus (Primary Dx) 04/12/2024 Travel 04/01/2024 Telephone [facility] - Centralized Scheduling [facility] [place] [address] Rivka Baumann APRN-CNP Concerns from Last 3 [...] on file Legal Sex Male 5:37 AM EDGING MACHINE OPERATOR Gender Identity Not on file Sexual Orientation Not on file Last Filed Vital Signs Vital Sign Reading Time Taken Comments Blood Pressure 135/83 04/12/2024 10:14 AM EDGING MACHINE OPERATOR Pulse 70 04/12/2024 10:14 AM EDGING MACHINE OPERATOR Temperature 37.1 C (98.8 F) 08/08/2023 7:39 AM CDT Respiratory Rate 18 11/13/2020 11:05 AM CDT Oxygen Saturation 99% 08/08/2023 7:39 AM CDT Inhaled Oxygen Concentration - - Weight 82.6 kg (182 lb) 04/12/2024 10:14 AM EDGING MACHINE OPERATOR Height 175.3 cm (5' 9 ) 02/09/2022 7:59 AM EDGING MACHINE OPERATOR Body Mass Index 26.88 02/09/2022 7:59 AM EDGING MACHINE OPERATOR Plan of Treatment Upcoming Encounters Date Type Department Care Team (Late st Contact Info) Description 10/03/2024 9:00 AM CDT Office Visit [facility] - Neurology [address] [place] [phone] Rivka Baumann, [facility] [address] [place] [address] Health Maintenance Due Date Last Done Comments [...] Date Last Indicated MRSA 11/09/2007 11/09/2007 Insurance [facility] Care Teams Weld Inspector Relationship Specialty Start Date End Date Jerry Cain MD [address] [address] PCP - General 06/30/17
== END 2024-06-26 21:30 | disposition left against medical advice (07) ==
LOC: ANHED 21:20
PROVIDERS: PCP Family Medicine Adolescent Medicine
DX: R51.9 Headache, unspecified (principal)
CPT/HCPCS: 99199

== ENCOUNTER 2025-02-07 13:11 | Outpatient (CLI) | payer MEDICARE, MEDICAID, SELFPAY ==
--- NOTE | ~2025-02-07 | US_ITS ---
LEFT LOWER EXTREMITY VENOUS DUPLEX Clinical History: R/O DVT L leg COMPARISON: None TECHNIQUE: Grayscale, color, duplex/spectral Doppler sonography left leg FINDINGS: Left leg common femoral, femoral, popliteal, and calf veins compressible and color Doppler patent. Normal augmentation with distal compression. No internal echoes. IMPRESSION: 1. No left leg DVT. Reviewed, dictated and finalized at location [facility]. [facility] NURSE IMPRESSION: 1. No left leg DVT.
--- OUTSIDE RECORDS SUMMARY | 2025-02-07 13:21 | XMS_ITS | Encounter Summary ---
Author Organization [facility] Health Address [address] [facility] [place] [address] Care Team Providers Care Farmworker Fur Name Role Phone Jerry Cain MD Primary Care Provider + Reason for Visit * Reason Onset Date Comments Concerns 04/01/2024 Encounter Details Date Type Department Care Team (Late st Contact Info) Description 04/01/2024 Telephone [facility] - Centralized Scheduling [address] [place] [phone] Rivka Baumann APRN-INVESTIGATOR FRAUD [address] [place] [address] Concerns Social History Tobacco Use Types Packs/Day Years Used Date Smoking Tobacco: Never Smokeless Tobacco: Never Alcohol Use Standard Drinks/Week Comments No 0 (1 standard drink = 0.6 oz pur e alcohol) Sex and Gender Information Value Date Recorded Sex Assigned at Not on file Legal Sex Male 5:37 AM BELL CAPTAIN Gender Identity Not on file Sexual Orientation [...] a soonerdate than October in the morning. CAPTAIN documented in this encounter Plan of Treatment Upcoming Encounters Date Type Department Care Team (Late st Contact Info) Description 04/02/2025 8:30 AM BELL CAPTAIN Office Visit [facility] [address] [facility] [place] [address] Rivka Baumann APRN-INVESTIGATOR FRAUD [address] [place] [address] documented as of this encounter Visit Diagnoses Not on filedocumented in this encounter Additional Health Concerns Infection Onset Date Last Indicated Resolved Time MRSA 11/09/2007 11/09/2007 documented as of this encounter Care Teams Farmworker Fur Relationship Specialty Start Date End Date Jerry Cain MD [address] [facility] [address] [place] [address] PCP - General 06/30/17 documented as of this encounter
--- OUTSIDE RECORDS SUMMARY | 2025-02-07 13:21 | XMS_ITS | Clinical Summary ---
Author Organization [facility] Address [address] [place] [address] Phone Care Team Providers Care Standard Machine Stitcher Name Role Phone Jerry Cain MD Primary Care Provider + Bryce Cantrell DO Unavailable [phone] Allergies No known active allergies Medications [...] 3:08 PM CDT Height 172.7 cm (5' 8) 07/21/2016 3:08 PM CDT Body Mass Index 28.89 07/21/2016 3:08 PM CDT Plan of Treatment Health Maintenance Due Date Last Done Comments Hepatitis C Virus (HCV) Screening 1990 TdaP Immunization 1990 Varicella Immunization (1 of 2 - 13+ 2-dose series) 2003 Hepatitis B Immunization (1 of 3 - 19+ 3-dose series) 2009 Influenza Immunization (#1) 2024 SARS-COV-2 Immunization ( - 2024- season) 2024 Respiratory Syncytial Virus (RSV) Immunization (Adult) (1 - 1-dose 75+ series) 2065 Human Papillomavirus (HPV) Immunization (No Doses Required) Completed Meningococcal Immunization (ACWY) Aged Out No longer eligible based on patient's age to complete this topic Pneumococcal Immunization Combined Aged Out No longer eligible based on patient's age to complete this topic Rotavirus Immunization Aged Out No lo nger eligible based on patient's age to complete this topic Insurance MEDICAID [facility] Care Teams Standard Machine Stitcher Relationship Specialty Start Date End Date Jerry Cain MD PCP - General Family Medicine 03/02/15 Bryce aCntrell DO Gastroenterology 06/25/15
--- OUTSIDE RECORDS SUMMARY | 2025-02-07 13:21 | XMS_ITS | Clinical Summary ---
Author Organization [facility] Address [address] [place] [address] Care Team Providers Care General Dentist Name Role Phone Jerry Cain MD Primary Care Provider + Source Comments [facility],non-owned Affiliates and Associated Physician Practices is amultiple site organization consisting of ambulatory clinics and hospital sitesin [place], [place], [place] and [place]. This disclosure is being madepursuant to the Care Everywhere program and may not contain all information available regarding this patient. Last updated 17.[facility] [employer] [place] Allergies No known active allergies Medications * [...] tablet by mouth 2 times daily Active divalproex DR (Depakote) 500 MG tabletIndication s:Partial symptomatic epilepsy with complex partial seizures, not intractable, without status epilepticus (HCC) Take 1 (one) tablet by mouth 2 times daily With 125 mg order for a total dose of divalproex of 625 mg twice daily 180 tablet [address] (Depakote) 125 MG tabletIndication s:Partial symptomatic epilepsy with complex partial seizures, not intractable, without status epilepticus (HCC) Take 1 (one) tablet by mouth 2 times daily With 500 mg order for a total dose of divalproex of 625 mg twice daily 180 tablet 3 5 Active cloBAZam (Onfi) 10 MG tabletIndication s:Partial symptomatic epilepsy with complex partial seizures, not intractable, without status epilepticus (HCC) Take 0.5 (one-half) tablet by mouth at bedtime 15 tablet 5 5 Active Active Problems Problem Noted Date Diagnosed Date Epilepsy 07/19/2018 Chronic constipation 06/25/2015 Complex partial seizures with consciousness impa ired 11/15/2014 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 Immunizations Immunization Administration Dates Next Due DTP [...] on file Legal Sex Male 5:37 AM [employer] Gender Identity Not on file Sexual Orientation Not on file Last Filed Vital Signs Vital Sign Reading Time Taken Comments Blood Pressure 117/76 10/11/2024 8:04 AM CDT Pulse 64 10/11/2024 8:04 AM CDT Temperature 37.1 C (98.8 F) 08/08/2023 7:39 AM CDT Respiratory Rate 18 11/13/2020 11:05 AM CDT Oxygen Saturation 98% 10/11/2024 8:04 AM CDT Inhaled Oxygen Concentration - - Weight 84.8 kg (187 lb) 10/11/2024 8:04 AM CDT Height 175.3 cm (5' 9) 10/11/2024 8:04 AM CDT Body Mass Index 27.62 10/11/2024 8:04 AM CDT Plan of Treatment Upcoming Encounters Date Type Department Care Team (Late st Contact Info) Description 04/02/2025 8:30 AM [employer] Office Visit [facility] - Neurology [address] [facility] [facility] [place] [address] Rivka Baumann, PHOTOGRAPHIC LABORATORY TECHNICIAN-TUBE INSPECTOR [address] [place] [address] Health Maintenance Due Date Last Done Comments DTAP/TDAP/TD VACCINES (6 - Tdap) 2001 08/02/1994, 09/10/1991, 1990, Additional history exists HIV SCREENING 2005 HEPATITIS C SCREENING 01/28/2008 HPV VACCINE (1 - 3-dose SCDM series) 2017 DEPRESSION SCREENING 02/21/2024 COVID-19 VACCINE ( season) 2024 INFLUENZA VACCINE (#1) 2024 ZOSTER VACCINE (1 of 2) 02/02/2040 [...] on patient's age to complete this topic Additional Health Concerns Infection Onset Date Last 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
== END 2025-02-07 13:12 | disposition home or self-care (01) ==
PROVIDERS: PCP Family Medicine Adolescent Medicine; Visit Provider Podiatrist Foot & Ankle Surgery
DX: I82.401 Acute embolism and thrombosis of unspecified deep veins of right lower extremity (principal)
CPT/HCPCS: 93971